=== PATIENT | male | born 1965 | race Caucasian/White ===

== ENCOUNTER 2019-05-09 10:03 | Outpatient (CLI) | payer MEDICARE, SELFPAY ==
--- NOTE | ~2019-05-09 | XR_ITS ---
EXAMINATION: XR lumbar spine 2-3V EXAM DATE: 05/09/2019 10:54 INDICATION: Lumbar radiculopathy. TECHNIQUE: Lumber spine frontal, lateral, lateral L5-S1 projections for interpretation. There is no prior study for comparison. FINDINGS: There is posterior fusion hardware L4-S1 with a cross linking violet. No hardware fracture. L 4 and L5 laminectomies. Probable moderate facet arthropathy at L5-S1, mild to moderate at the upper l umbar levels. There is interbody fusion L5-S1. Mild to moderate loss of the disc heights at L1-2, L2- 3 and L4-5. There is 3 mm retrolisthesis L3 on L4 with large bridging endplate osteophytes. Sacrum, s acroiliac joints, sacral arcuate lines are intact. Paraspinal soft tissue is unremarkable. IMPRESSION: 1. Intact lumbar fusion L4-S1. 2. Mild to moderate lumbar spondylosis as detailed above. Reviewed, dictated and finalized at location A.
--- NOTE | ~2019-05-09 | XR_ITS ---
EXAMINATION: XR cervical spine 4-5V EXAM DATE: 05/09/2019 10:54 INDICATION: Cervical radiculopathy. TECHNIQUE: Cervical spine frontal, lateral, lateral swimmers, and open-mouth odontoid projections. There is no prior study for comparison. FINDINGS: There is anterior and interbody fusion C5-7. Mild disc disease at the upper cervical level s. The vertebral bodies are aligned in the AP dimension. Mild to moderate cervical arthropathy. There is no evidence of acute cervical fracture. The odontoid process is intact. Pre-dens space is reena l. Prevertebral soft tissue is normal. There are no soft tissue abnormalities identified. The laci tebral bodies are aligned. Vertebral body and disc heights are well-maintained. IMPRESSION: 1. Intact C5-7 fusion. 2. Mild to moderate cervical arthropathy. Reviewed, dictated and finalized at location A.
== END 2019-05-09 10:04 ==
PROVIDERS: Visit Provider Pain Medicine Interventional Pain Medicine
DX: M54.16 Radiculopathy, lumbar region (principal); M54.12 Radiculopathy, cervical region; Z98.1 Arthrodesis status; M12.88 Other specific arthropathies, not elsewhere classified, other specified site; M47.816 Spondylosis without myelopathy or radiculopathy, lumbar region
CPT/HCPCS: 72050; 72100

== ENCOUNTER 2021-06-09 15:35 | Outpatient (CLI) | payer MEDICARE, SELFPAY ==
--- NOTE | ~2021-06-09 | XR_ITS ---
EXAMINATION: XR lumbar spine 2-3V EXAM DATE: 06/09/2021 16:39 INDICATION: Lumbar and cervical radiculopathy. TECHNIQUE: Lumber spine frontal, lateral, lateral L5-S1 projections for interpretation. Comparison is made to prior examination from 05/09/2019. FINDINGS: L4 and L5 laminectomies posterior fusion hardware L4-S1. Interbody device at L5-S1. The bermudez rdware is intact. There is possibility of lucency surrounding the pedicular screws, possible loosenin g, particularly at the uppermost L4 level. Probable posterior bone graft versus heterotopic ossificat ion. Mild to moderate upper lumbar arthropathy. There is 6 mm retrolisthesis L3 on L4 with moderate disc disease. Mild to moderate disc disease at L2 -3 and L4-5. Large anteriorly based L2-3 endplate osteophyte. There are no acute fractures identified . Mild aortic arterial sclerosis. Retroperitoneal surgical clips. IMPRESSION: 1. L4-S1 fusion with possibility of pedicular screw loosening particularly at the L4 level. 2. Grade 1 retrolisthesis L3 on L4. 3. Spondylosis. Reviewed, dictated and finalized at location B.
--- NOTE | ~2021-06-09 | XR_ITS ---
EXAMINATION: XR cervical spine 4-5V EXAM DATE: 06/09/2021 16:39 INDICATION: Cervical radiculopathy. TECHNIQUE: Cervical spine frontal, lateral, lateral swimmers, and open-mouth odontoid projections. C omparison is made to prior examination from 05/09/2019. FINDINGS: Anterior and interbody fusion C5-7. There is mild to moderate C4-5 disc disease. Mild to moderate cer vical arthropathy, with evidence of some neural foraminal stenosis at C4-5. Mild cervicothoracic scol iosis. The vertebral bodies are aligned in the AP dimension. The odontoid process is intact. The lat eral masses of C1 line up with C2. Prevertebral soft tissue and pre-dens space are within normal limi ts. IMPRESSION: 1. Intact C5-7 cervical fusion. 2. Mild to moderate spondylosis. Reviewed, dictated and finalized at location B.
== END 2021-06-09 15:36 ==
DX: M47.22 Other spondylosis with radiculopathy, cervical region (principal); M47.26 Other spondylosis with radiculopathy, lumbar region; Z98.1 Arthrodesis status; M41.9 Scoliosis, unspecified
CPT/HCPCS: 72050; 72100

== ENCOUNTER → 2021-11-04 14:22 | Outpatient (CLI) | payer MEDICARE, SELFPAY ==
--- NOTE | ~2021-11-04 | XR_ITS ---
EXAMINATION: XR hip LT min 2V DATE: 11/04/2021 14:42 INDICATION: Left hip pain. TECHNIQUE: 2 views of left hip were obtained. COMPARISON: Left hip radiographs 06/23/2017 FINDINGS: Bone alignment is normal. No fracture. There is mild left hip osteoarthritis. There are rosalina nges of posterior fusion procedure in lumbar spine. IMPRESSION: 1. Mild left hip osteoarthritis. Reviewed, dictated and finalized at location A.
== END ==
PROVIDERS: PCP Family Medicine; Visit Provider Pain Medicine Interventional Pain Medicine
DX: M25.552 Pain in left hip (principal); M16.12 Unilateral primary osteoarthritis, left hip
CPT/HCPCS: 73502

== ENCOUNTER 2021-12-17 14:30 | Outpatient (RCR) | payer MEDICARE, SELFPAY ==
[2021-10-21 13:16] VITALS: BMI 36.9
[2021-10-21 13:58] VITALS: BMI 36.9
== END 2022-01-12 09:05 | disposition home or self-care (01) ==
LOC: ANHDMC 14:30
PROVIDERS: PCP Family Medicine; Visit Provider Internal Medicine Endocrinology, Diabetes & Metabolism
DX: E11.9 Type 2 diabetes mellitus without complications (principal); Z71.3 Dietary counseling and surveillance; Z71.89 Other specified counseling
CPT/HCPCS: 97802; 99199; G0108; G0109

== ENCOUNTER 2022-01-15 12:58 | Outpatient (RCR) | payer MEDICARE, SELFPAY ==
[2022-01-15 13:46] VITALS: BMI 33.8
[2022-01-15 13:47] VITALS: BMI 33.8
== END 2022-03-20 17:50 | disposition home or self-care (01) ==
LOC: ANHDMC 12:58
PROVIDERS: PCP Family Medicine; Visit Provider Internal Medicine Endocrinology, Diabetes & Metabolism
DX: E11.9 Type 2 diabetes mellitus without complications (principal); Z71.3 Dietary counseling and surveillance
CPT/HCPCS: 97803

== ENCOUNTER 2022-04-22 13:36 | Outpatient (CLI) | payer MEDICARE, SELFPAY ==
[2022-04-22 14:34] LABS: Urine Cotinine NEGATIVE
== END 2022-04-22 13:37 | disposition home or self-care (01) ==
PROVIDERS: PCP Family Medicine
DX: M51.36 Other intervertebral disc degeneration, lumbar region (principal)
CPT/HCPCS: 80307

== ENCOUNTER 2022-05-11 10:45 | Outpatient (CLI) | payer MEDICARE, SELFPAY ==
[2022-05-11 11:35] LABS: Basophils Absolute Auto 0.1 K/mm3 (0.0-0.1); Basophils Percent Auto 0.6 % (0.2-1.2); Eosinophils Absolute Auto 0.3 K/mm3 (0-0.3); Eosinophils Percent Auto 3.2 % (0-4.4); Hematocrit 49.8 % (42.0-52.0); Hemoglobin 16.5 g/dL (14.0-18.0); Immature Granulocyte Absolute 0.02 K/mm3 (0.00-0.031); Immature Granulocyte Percent A 0.2 % (0-0.5); Lymphocytes Absolute Auto 1.55 K/mm3 (0.9-3.2); Lymphocytes Percent Auto 18.1 % (18.3-44.2); Mean Corpuscular HGB Conc 33.1 g/dl (32-36); Mean Corpuscular Hemoglobin 30.6 pg (26-34); Mean Corpuscular Volume 92.2 fl (80-100); Monocytes Absolute Auto 0.5 K/mm3 (0.1-0.6); Monocytes Percent Auto 5.7 % (2.6-8.5); Neutrophils Absolute Auto 6.2 K/mm3 (1.3-6.7); Neutrophils Percent Auto 72.2 % (45.5-73.1); Platelet Count Result 180 k/mm3 (150-375); Red Cell Distribution Width 13.3 % (11.5-14.5); White Blood Count 8.6 K/mm3 (4.5-10.0)
[2022-05-11 11:47] LABS: Alanine Aminotransferase 20 U/L (6-50); Albumin Level 4.7 g/dL (3.5-5.1); Alkaline Phosphatase 66 U/L (38-126); Anion Gap 8 mmol/L (8-16); Aspartate Amino Transferase 22 U/L (17-59); Bilirubin,Total 0.6 mg/dL (0.2-1.3); Blood Urea Nitrogen 20 mg/dL (9-20); Calcium 9.5 mg/dL (8.4-10.2); Carbon Dioxide 25 mmol/L (22-30); Chloride 105 mmol/L (98-107); Cholesterol 154 mg/dL (0-200); Estimated Glomerular Filt Rate > 60; Glucose 187 mg/dL (65-110); HDL Direct 44 mg/dL; Potassium 4.2 mmol/L (3.4-5.0); Sodium 138 mmol/L (137-145); Triglycerides 292 mg/dL (<150)
[2022-05-11 11:56] LABS: Hemoglobin A1C 6.2 % (<5.7)
[2022-05-11 11:58] LABS: LDL Cholesterol Direct 70 mg/dL
[2022-05-11 12:01] LABS: Creatinine Urine 64.8 mg/dL
[2022-05-11 12:06] LABS: MALB Creatinine Ratio 15.7 mg/g (0-30); Microalbumin Urine Random 10.2 mg/L (0-16.7)
[2022-05-11 12:11] LABS: Free T4 Free Thyroxine 0.98 ng/mL (0.78-2.19)
[2022-05-11 12:16] LABS: Prostate Specific Antigen 0.4 ng/mL (< OR = 4.0)
[2022-05-14 04:48] LABS: C-Peptide 11.04 ng/mL (0.80-3.85)
== END 2022-05-11 10:46 | disposition home or self-care (01) ==
PROVIDERS: PCP Family Medicine; Referring Provider Nurse Practitioner Family; Visit Provider Family Medicine
DX: E55.9 Vitamin D deficiency, unspecified (principal); I10 Essential (primary) hypertension; E11.9 Type 2 diabetes mellitus without complications; Z12.5 Encounter for screening for malignant neoplasm of prostate; E78.5 Hyperlipidemia, unspecified; F41.8 Other specified anxiety disorders
CPT/HCPCS: 36415; 80053; 80061; 82043; 82306; 82607; 83036; 84153; 84439; 84443; 84681; 85025; G0103

== ENCOUNTER 2022-10-15 12:18 | Outpatient (CLI) | payer OTHER, SELFPAY ==
--- NOTE | ~2022-10-15 | XR_ITS ---
EXAM: XR lumbar spine 2-3V DATE: 10/15/2022 13:00 HISTORY: PAIN IN BACK . COMPARISON: 06/09/2021, 05/09/2019; CT abdomen and pelvis 07/23/2016 MRI lumbar spine 08/07/2017. FINDINGS: Note that are appears to be hypoplastic ribs at T12 and bilateral sacralization of L5. The following spinal level numbering differs from prior studies. Uncomplicated appearing fusion hardware spanning L2-L5. Interbody devices at L2-3 and L4-5, in good position. 5 nonrib-bearing lumbar-type ve rtebral bodies. Pedicles intact. 3 mm retrolisthesis at L1-2. 2 mm retrolistheses at L2-3 and L3-4. S table mild height loss at T11 and T12. Multilevel mild-moderate disc space narrowing and marginal ost eophytosis. No fracture or dislocation. 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 Recommend co nfirmation of spinal levels if additional procedures or surgery are planned. Uncomplicated lumbar posterior hardware fusion. Multilevel grade 1 listheses. Lumbar degenerative disc disease. Reviewed, dictated and finalized at location K. 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 Recommend confirmation of spinal levels if additional procedures or s urgery are planned. Uncomplicated lumbar posterior hardware fusion. Multilevel grade 1 listheses. Lumbar degenerative disc disease.
--- NOTE | ~2022-10-15 | XR_ITS ---
EXAMINATION:XR_CERV2-3V_CR DATE: 10/15/2022 13:00 INDICATION: Neck pain TECHNIQUE: AP, lateral, lateral swimmers and odontoid views of the cervical spine are provided. COMPARISON: 06/09/2021 FINDINGS: Alignment is normal. The odontoid process is intact. No fracture is identified. There are c hanges of anterior fusion and interbody placement from C5 through C7. Vertebral body heights and disk spaces are normal. Prevertebral soft tissues are normal. There is multilevel moderate facet and unco vertebral joint osteoarthritis. IMPRESSION: 1. Mild to moderate cervical spondylosis without acute findings or significant interval change. Reviewed, dictated and finalized at location L.
--- NOTE | ~2022-10-15 | XR_ITS ---
EXAM: XR shoulder RT min 2V, XR shoulder LT min 2V DATE: 10/15/2022 13:00 HISTORY: PAIN IN SHOULDER BI . COMPARISON: None available. FINDINGS: Normal mineralization. No fracture or dislocation. No lytic or blastic lesion. ACDF hardwa re. Amorphous cuff calcifications. Mild degenerative change in the bilateral AC joints and glenohumer al joints. No erosion or periosteal change. Soft tissues within normal limits. IMPRESSION: Mild polyarticular osteoarthritis in the right and left shoulders. Bilateral rotator cuff tendinitis. Reviewed, dictated and finalized at location K. IMPRESSION: Mild polyarticular osteoarthritis in the right and left shoulders. Bilateral rotator cuff tendinitis.
== END 2022-10-15 12:19 ==
PROVIDERS: PCP Family Medicine; Visit Provider Pain Medicine Interventional Pain Medicine
DX: M51.36 Other intervertebral disc degeneration, lumbar region (principal); M47.22 Other spondylosis with radiculopathy, cervical region; M25.511 Pain in right shoulder; M25.512 Pain in left shoulder; M15.9 Polyosteoarthritis, unspecified; M75.102 Unspecified rotator cuff tear or rupture of left shoulder, not specified as traumatic
CPT/HCPCS: 72040; 72100; 73030

== ENCOUNTER 2022-11-10 15:05 | Outpatient (CLI) | payer MEDICARE, SELFPAY ==
[2022-11-10 20:05] LABS: Alanine Aminotransferase 16 U/L (6-50); Albumin Level 4.5 g/dL (3.5-5.1); Alkaline Phosphatase 76 U/L (38-126); Anion Gap 3 mmol/L (8-16); Aspartate Amino Transferase 31 U/L (17-59); Bilirubin,Total 0.5 mg/dL (0.2-1.3); Blood Urea Nitrogen 15 mg/dL (9-20); Calcium 9.7 mg/dL (8.4-10.2); Carbon Dioxide 32 mmol/L (22-30); Chloride 102 mmol/L (98-107); Estimated Glomerular Filt Rate > 60; Glucose 141 mg/dL (65-110); Potassium 4.5 mmol/L (3.4-5.0); Sodium 137 mmol/L (137-145)
== END 2022-11-10 15:06 | disposition home or self-care (01) ==
LOC: ANHGOSHLAB 15:07
PROVIDERS: PCP Family Medicine; Visit Provider Family Medicine
DX: E11.9 Type 2 diabetes mellitus without complications (principal); I10 Essential (primary) hypertension; Z79.899 Other long term (current) drug therapy
CPT/HCPCS: 36415; 80053

== ENCOUNTER 2022-12-21 09:57 | Outpatient (CLI) | payer MEDICARE, SELFPAY ==
--- NOTE | ~2022-12-21 | CT_ITS ---
EXAMINATION: CT lumbar spine wo con DATE: 12/21/2022 10:12 INDICATION: Chronic back pain TECHNIQUE: Computed tomography (CT) of the lumbar spine was performed without intravenous contrast. A utomated exposure control and iterative reconstruction technique were employed. The dose-length produ ct was 974.09 mGy-cm. COMPARISON: Lumbar spine radiographs dated 10/15/2022 FINDINGS: Transitional thoracolumbar segment with hypoplastic riblets which for purposes of this report will be designated L1. Prior imaging is insufficient to definitively establish the number of thoracic segmen ts. 1-2 mm retrolisthesis L3 on L4 and L4-L5. Chronic superior endplate compression fracture at L5 wi th 40% central vertebral body height loss. Chronic L1 compression fracture with 20% anterior vertebra l body height loss. Postoperative change of prior L4 laminectomy. There have also been more recent-ap pearing L5 and S1 partial laminectomies and left L4-L5 and L5-S1 hemilaminotomies which lack a cortic ated margin and which appear to have been revised/debrided in the interval between the radiographs on 06/09/2021 and 10/15/2022. There is a residual fluid collection in the posterior paraspinal soft tissu es at the operative bed which measures 7 cm craniocaudally and 5 x 5 cm in maximal transaxial dimensi ons. Chronic anterior spinal fusion with interbody bone graft cage at L5-S1 and more recent anterior spinal fusion with interbody fusion device at L3-L4. There is a revised instrumented posterior spinal fusion which extends from L3 to S1 with bilateral vertical rods and pedicle screws the exception of on the left at L5 where there is no current pedicle screw. Old screw tract from previous removed fixa tion seen at the left L5 pedicle as well as at the bilateral pedicles at S1. There is a chronic appea ring ununited fracture across the left L5 pars interarticularis. Moderate disc height loss at T12-L1, mild disc height loss at L1-L2 and L2-L3 and mild disc height loss at the periphery of the L4-L5 dis c space with central ballooning resulting from the L5 compression fracture. There are partially visua lized cyst at the left kidney. The following disc levels are specifically discussed: T12-L1: The disc does not extend beyond the endplate margin. There is mild bilateral facet joint oste oarthritis. There is no neural foraminal stenosis. There is no central canal stenosis. L1-L2: Small right paracentral disc extrusion with small osteophyte along its cephalad margin arising from L1. There is mild bilateral facet joint osteoarthritis. There is mild right neural foraminal st enosis. There is mild central canal stenosis. L2-L3: Disc is mildly bulging. There is mild bilateral facet joint osteoarthritis. There is no neural foraminal stenosis. There is mild central canal stenosis. L3-L4: Assessment is somewhat limited by metallic streak artifact from the posterior spinal fusion. F usion procedure at the disc space and bilateral facet joints. There is mild narrowing of the inferior aspect of the right neural foramina stenosis which appears to be compensated at the cephalad aspect of the neural foramina by the minimal retropulsion with corresponding posterior displacement of the p osterior elements of L3 at the posterior margin of the neural foramen. There is no osseous narrowing of the left neural foramen or of the central canal. L4-L5: The soft tissue and margins of the disc are unable to be assessed due to the metallic streak a rtifact from the posterior spinal fusion at the bilateral facet joints. Likely left hemilaminotomy wi th a couple millimeter medial displacement of an appears to arise from the cephalad margin of the lef t lamina of L5 along the margin of the hemilaminotomy and which results in mild narrowing of the osse ous central canal. There is minimal right neural foraminal stenosis resulting from small amount of adolfo ne graft material at the posterior aspect o
== END 2022-12-21 09:58 ==
LOC: MICIMG 09:58
DX: Z98.1 Arthrodesis status (principal); M43.06 Spondylolysis, lumbar region; M43.04 Spondylolysis, thoracic region; M79.89 Other specified soft tissue disorders
CPT/HCPCS: 72131

== ENCOUNTER 2023-05-12 08:31 | Outpatient (CLI) | payer MEDICARE, SELFPAY ==
[2023-05-12 11:32] LABS: Basophils Absolute Auto 0.1 K/mm3 (0.0-0.1); Basophils Percent Auto 0.5 % (0.2-1.2); Eosinophils Absolute Auto 0.4 K/mm3 (0-0.3); Eosinophils Percent Auto 4.1 % (0-4.4); Hematocrit 54.1 % (42.0-52.0); Hemoglobin 17.1 g/dL (14.0-18.0); Immature Granulocyte Absolute 0.03 K/mm3 (0.00-0.031); Immature Granulocyte Percent A 0.3 % (0-0.5); Lymphocytes Absolute Auto 2.15 K/mm3 (0.9-3.2); Lymphocytes Percent Auto 22.8 % (18.3-44.2); Mean Corpuscular HGB Conc 31.6 g/dl (32-36); Mean Corpuscular Hemoglobin 29.3 pg (26-34); Mean Corpuscular Volume 92.6 fl (80-100); Mean Platelet Volume 11.6 fl (7.4-10.4); Monocytes Absolute Auto 0.9 K/mm3 (0.1-0.6); Monocytes Percent Auto 9.6 % (2.6-8.5); Neutrophils Absolute Auto 5.9 K/mm3 (1.3-6.7); Neutrophils Percent Auto 62.7 % (45.5-73.1); Platelet Count Result 190 k/mm3 (150-375); Red Blood Count 5.84 M/mm3 (4.6-6.20); Red Cell Distribution Width 14.2 % (11.5-14.5); White Blood Count 9.4 K/mm3 (4.5-10.0)
[2023-05-12 11:56] LABS: Alanine Aminotransferase 20 U/L (6-50); Albumin Level 4.6 g/dL (3.5-5.1); Alkaline Phosphatase 74 U/L (38-126); Anion Gap 7 mmol/L (8-16); Aspartate Amino Transferase 37 U/L (17-59); Bilirubin,Total 0.9 mg/dL (0.2-1.3); Blood Urea Nitrogen 22 mg/dL (9-20); Calcium 10.1 mg/dL (8.4-10.2); Carbon Dioxide 28 mmol/L (22-30); Chloride 103 mmol/L (98-107); Cholesterol 142 mg/dL (0-200); Estimated Glomerular Filt Rate > 60; Glucose 155 mg/dL (65-110); HDL Direct 47 mg/dL; Potassium 4.6 mmol/L (3.4-5.0); Sodium 138 mmol/L (137-145); Triglycerides 166 mg/dL (<150)
[2023-05-12 12:07] LABS: LDL Cholesterol Direct 74 mg/dL
[2023-05-12 12:22] LABS: Vitamin D 25 Hydroxy 45.1 ng/mL
[2023-05-12 12:25] LABS: Prostate Specific Antigen 0.6 ng/mL (< OR = 4.0)
[2023-05-12 12:34] LABS: Creatinine Urine 88.6 mg/dL
[2023-05-12 12:37] LABS: MALB Creatinine Ratio 54.3 mg/g (0-30); Microalbumin Urine Random 48.1 mg/L (0-16.7)
== END 2023-05-12 08:32 | disposition home or self-care (01) ==
PROVIDERS: PCP Family Medicine; Visit Provider Family Medicine
DX: Z12.5 Encounter for screening for malignant neoplasm of prostate (principal); R20.0 Anesthesia of skin; R20.2 Paresthesia of skin; E78.5 Hyperlipidemia, unspecified; F41.8 Other specified anxiety disorders; I10 Essential (primary) hypertension; E55.9 Vitamin D deficiency, unspecified; J45.20 Mild intermittent asthma, uncomplicated; E53.8 Deficiency of other specified B group vitamins; E11.9 Type 2 diabetes mellitus without complications
CPT/HCPCS: 36415; 80053; 80061; 82043; 82306; 82607; 84153; 84443; 85025; G0103

== ENCOUNTER 2023-10-05 01:19 | Day surgery (SDC) | payer MEDICARE, SELFPAY ==
[2023-09-15 13:19] VITALS: BMI 36.3
[2023-10-05 06:22] VITALS: BP 154/81; PULSE 81; RESP 18; TEMP 36.5; O2SAT 97; BMI 37.0
[2023-10-05 06:24] LABS: Glucose Point of Care 191 mg/dl (65-105)
[2023-10-05] MEDS: LACTATED RINGERS 1,000 ML 150 ML IV CONT (06:31)
--- NOTE | 2023-10-05 07:09 | WPDANESEPPF ---
Anes - Initial Pre Proc Eval Procedure: Operation Date: 10/05/23 07:30 Proposed Procedures p Colonoscopy - Carlos Cloud MD Date/Time: 10/05/23 07:09 Surgeon: Carlos Cloud MD Pre Op Diagnosis: Personal history colon polyps Patient Data Age: 58 Gender: M Height: 1.63 m Weight: 97.8 kg Last Vital Signs Temp 36.5 C 10/05/23 06:22 Pulse 81 10/05/23 06:22 Resp 18 10/05/23 06:22 BP 154/81 H 10/05/23 06:22 Pulse Ox 97 10/05/23 06:22 O2 Del Method Room Air 10/05/23 06:22 Allergies Allergy/AdvReac Type Severity Reaction Status Date / Time duloxetine Allergy Unknown Anxiety Verified 10/05/23 06:33 Home Medications Medication Instructions Recorded Confirmed Type oxycodone-acetaminophen 7.5 mg-325 1 tablet PO TID PRN Pain 10/03/19 10/05/23 History mg tablet (Percocet) tizanidine 4 mg tablet 4 mg PO QHS PRN Muscle Spasm 01/30/21 10/05/23 History OneTouch Verio test strips (blood #300 ea 10/02/21 10/05/23 Rx sugar diagnostic) blood-glucose meter 10/02/21 10/05/23 History lancets 33 gauge (OneTouch Delica #300 ea 11/13/21 10/05/23 Rx Plus Lancet) pen needle, diabetic 32 gauge x #600 ea 11/13/21 10/05/23 Rx 5/32 (CareFine Pen Needle) semaglutide 2 mg/dose (8 mg/3 mL) 2 mg (0.75 mL) subcut WEEKLY 90 02/12/22 10/05/23 Rx subcutaneous pen injector (Ozempic) days #9 mL sennosides 8.6 mg-docusate sodium 1 ea PO DAILY 02/12/22 10/05/23 History 50 mg tablet (Stimulant Laxative Plus) blood sugar diagnostic (Blood #300 ea 08/31/22 10/05/23 Rx Glucose Test strips) blood sugar diagnostic (Accu-Chek #100 ea 09/07/22 10/05/23 Rx Guide test strips) blood-glucose meter (Accu-Chek #1 ea 09/07/22 10/05/23 Rx Guide Glucose Meter) urine glucose-ketones test #50 ea 11/25/22 10/05/23 Rx amitriptyline 50 mg tablet 50 mg PO QHS PRN Sleep 05/10/23 10/05/23 History meloxicam 15 mg tablet 15 mg PO DAILY 05/10/23 10/05/23 History lisinopril 10 mg tablet 10 mg PO DAILY #90 tabs 06/15/23 10/05/23 Rx albuterol sulfate 90 mcg/actuation 2 inh inhalation Q4-6H PRN 07/05/23 10/05/23 Rx aerosol inhaler shortness of breath or wheezing #25.5 grams fluticasone 500 mcg-salmeterol 50 1 inh inhalation Q12H #180 ea 07/05/23 10/05/23 Rx mcg/dose blistr powdr for inhalation (Wixela Inhub) atorvastatin 10 mg tablet 10 mg PO QHS #90 tabs 07/06/23 10/05/23 Rx dapagliflozin propanediol 10 mg 10 mg PO QAM 90 days #90 tabs 08/17/23 10/05/23 Rx tablet (Farxiga) pen needle, diabetic 32 gauge x #100 ea 08/17/23 10/05/23 Rx 5/32 (BD Ultra-Fine Gunjan Pen Needle) glucagon 3 mg/actuation nasal spray 3 mg intranasal ONCE PRN low blood 09/15/23 10/05/23 History sugar insulin degludec 200 unit/mL (3 20 unit subcut PRN PRN no ozempic 09/15/23 10/05/23 History mL) subcutaneous pen (Tresiba avaiable FlexTouch U-200 insulin) Laboratory Tests 10/05/23 06:18 POC Capillary Glucose 191 H mg/dl (65-105) Patient hx anesthesia problems: none Family hx anesthesia problems: none Results Review: All pre-operative results and documents have been reviewed as part of the pre-operative evaluation. [facility] Past Medical History Medical History Abdominal wall seroma Anxiety and depression Anxiety with depression Arthritis Asthma Body mass index (BMI) 40.0-44.9, adult (08/31/16) Chronic neck and back pain Epididymitis, left Essential (primary) hypertension (~2006) History of bladder cancer (~2007) History of colon polyps (~2016) History of trigger finger right middle finger - s/p release 2005 Hyperlipidemia LDL goal <100 Insomnia Intervertebral disc disorders with myelopathy, lumbar region Left hip pain [facility] (current) use of insulin Lumbar disc disease with radiculopathy Mild episode of recurrent major depressive disorder Muscle spasm Nontraumatic hematoma of soft tissue (
--- NOTE | 2023-10-05 07:26 | PM.HPGS ---
History of Present Illness History of Present Illness Consent: Risks, benefits, and alternatives have been discussed and questions answered. Patient agrees to proceed with procedure. Chief complaint: Personal history colon polyps Narrative: Rui Mckinnon is a 58 year old male here for colonoscopy, h/o colon polyp Review of Systems Review of Systems: All systems reviewed & are unremarkable except as noted in HPI and below PMFSH Past Medical History Medical History (Updated 10/05/23 @ 07:27 by Carlos Cloud MD) Abdominal wall seroma Anxiety and depression Anxiety with depression Arthritis Asthma Body mass index (BMI) 40.0-44.9, adult (08/31/16) Chronic neck and back pain Colon polyp Epididymitis, left Essential (primary) hypertension (~2006) History of bladder cancer (~2007) History of colon polyps (~2016) History of trigger finger right middle finger - s/p release 2005 Hyperlipidemia LDL goal <100 Insomnia Intervertebral disc disorders with myelopathy, lumbar region Left hip pain [facility] (current) use of insulin Lumbar disc disease with radiculopathy Mild episode of recurrent major depressive disorder Muscle spasm Nontraumatic hematoma of soft tissue (07/13/17) Numbness and tingling of left leg SASKIA (obstructive sleep apnea) Sleep trouble Spondylolisthesis Tobacco abuse Type 2 diabetes mellitus without complications Vitamin D deficiency Surgical History Surgical History H/O cervical spine surgery 2014 x6 History of arthroscopic knee surgery Right for meniscal repair 2010 History of bladder surgery resection of bladder cander - 2007 History of lumbar spinal fusion (~06/15/22) History of lumbosacral spine surgery 2016 and 2018 Family History Family History Mother Family history of osteoporosis Family history of blood dyscrasia Hypertension Family history of malignant neoplasm Family history of diabetes mellitus in first degree relative Sibling Family history of drug dependence Depression Family history of alcoholism Family history of malignant neoplasm Family history of lung cancer Father Asthma Family history of alcoholism Family history of malignant neoplasm Family history of chronic obstructive pulmonary disease Family history of lung cancer Other Diabetes mellitus Social History Social History Social History: Pt states that he has a license for marijuana and uses 1-2 times a day Smoking packs per day: 1 Smoking cigarettes per day: 20.0 Years smoked: 37 Smoking pack-years: 37.00 Smoking status: Current every day smoker Tobacco type: cigarettes Second hand tobacco smoke exposure: Yes Smoking end date: 03/14/22 Alcohol intake: never Alcohol use details: 1 per month Substance use: current Substance use type: marijuana Other substance usage details: 1-2 x weekly Do You Feel Safe in your Home?: Yes Lack of Transportation: No Lack of Food: Never True Current Housing: I Have Housing Concerned About Future Housing: No Difficulty Paying Gas/Electric Bills: No Difficulty Paying for Meds: YES Currently Unemployed: No Education: High School Diploma/GED Difficulty w/ Childcare or Family Care: No Living arrangements: alone Occupation/Education: retired Gender identity (if verbalized by the patient): Male Spiritual care concerns: No Meds Home Medications and Allergies Home Medications Medication Instructions Recorded Confirmed Type oxycodone-acetaminophen 7.5 mg-325 1 tablet PO TID PRN Pain 10/03/19 10/05/23 History mg tablet (Percocet) tizanidine 4 mg tablet 4 mg PO QHS PRN Muscle Spasm 01/30/21 10/05/23 History OneTouch Verio test strips (blood #300 ea 10/02/21 10/05/23 Rx sugar diagnostic) blood-glucose meter 10/02/21 0
[2023-10-05 07:48] VITALS: BP 124/83; PULSE 78; RESP 22; O2SAT 96
[2023-10-05 07:58] VITALS: BP 129/83; PULSE 71; RESP 19; O2SAT 98
[2023-10-05 08:08] VITALS: BP 124/80; PULSE 77; RESP 24; O2SAT 97
== END 2023-10-05 08:19 | disposition home or self-care (01) ==
PROVIDERS: PCP Family Medicine; Referring Provider Family Medicine; Visit Provider Internal Medicine Gastroenterology
PROC: 0DJD8ZZ Inspection of Lower Intestinal Tract, Via Natural or Artificial Opening Endoscopic (ICD-10-PCS; CPT 45378; principal; 2023-10-05 07:30)
DX: Z12.11 Encounter for screening for malignant neoplasm of colon (principal); K63.5 Polyp of colon; K57.30 Diverticulosis of large intestine without perforation or abscess without bleeding; K64.8 Other hemorrhoids; I10 Essential (primary) hypertension; J45.909 Unspecified asthma, uncomplicated; E78.5 Hyperlipidemia, unspecified; F33.0 Major depressive disorder, recurrent, mild; E11.9 Type 2 diabetes mellitus without complications; E55.9 Vitamin D deficiency, unspecified; F41.9 Anxiety disorder, unspecified; G47.33 Obstructive sleep apnea (adult) (pediatric); Z85.51 Personal history of malignant neoplasm of bladder; Z79.85 Long-term (current) use of injectable non-insulin antidiabetic drugs; Z79.51 Long term (current) use of inhaled steroids; Z79.84 Long term (current) use of oral hypoglycemic drugs; Z79.4 Long term (current) use of insulin; Z79.891 Long term (current) use of opiate analgesic; Z98.1 Arthrodesis status; Z87.891 Personal history of nicotine dependence; E66.9 Obesity, unspecified; Z68.37 Body mass index [BMI] 37.0-37.9, adult
CPT/HCPCS: 45385; 82948; 88305; J2704; J7120

== ENCOUNTER 2024-05-09 13:41 | Outpatient (CLI) | payer MEDICARE, SELFPAY ==
--- OUTSIDE RECORDS SUMMARY | 2024-05-09 15:21 | XMS_ITS | Clinical Summary ---
Author Organization [facility] Address [address] [place] [address] Care Team Providers Care Damper Worker Name Role Phone Hitesh Chauhan MD Primary Care Provider Velasquez Cordoba MD Unavailable [phone] Tika Basurto NP Unavailable [phone] Allergies No known active allergies Medications albuterol HFA (PROVENTIL HFA,VENTOLIN HFA,PROAIR HFA) 90 mcg/actuation inhaler INHALE 2 PUFFS EVERY 4 TO 6 HOURS NEEDED FOR WHEEZING OR SHORTNESS OF BREATH 2 Active blood glucose diagnostic strip Check blood sugar 2 times daily. 6 Active lisinopriL (PRINIVIL,ZESTR IL) 10 mg tablet Take 1.5 tablets (15 mg total) by mouth daily Active Ozempic 1 mg/dose (4 mg/3 mL) pen injector injection INJECT 1 MG UNDER SKIN EVERY WEEK 2 Active PreviDent 5000 Booster Plus 1.1 % paste USE TO BRUSH TEETH TWICE DAILY 3 Active Wixela Inhub 500-50 mcg/dose diskus inhaler INHALE 1 PUFF BY MOUTH EVERY 12 HOURS 3 Active atorvastatin (LIPITOR) 10 mg tablet Take 1 tablet (10 mg total) by mouth daily Active cholecalciferol (VITAMIN D-3) 50,000 unit capsule Take 1 capsule (50,000 Units total) by mouth once a week 16 capsule 3 Active senna-docusate (PERICOLACE) 8.6-50 mgIndications:c onstipation Take 1 tablet by mouth daily as needed for constipation 30 tablet 3 Active tiZANidine (ZANAFLEX) 4 mg tablet Take 1 tablet (4 mg total) by mouth every 6 (six) hours as needed for muscle spasms 90 tablet 1 3 Active oxyCODONE-aceta minophen (PERCOCET) 7.5-325 mg per tablet Take by mouth 4 (four) times a day as needed 3 Active Active Problems Problem Noted Date Diagnosed Date Severe malnutrition 06/19/2022 S/P lumbar spinal fusion 06/15/2022 Spondylolisthesis of lumbar region 04/28/2022 Overview (04/28/2022): Added automatically from request for surgery [id number] Chronic low back pain with left-sided sciatica 0 09/04/2021 Intervertebral disc disorder with radiculopathy of lumbar region 08/18/2021 Asthma 08/15/2021 Hypogonadism male 08/15/2021 Lichen planus 08/15/2021 Lumbar stenosis 10/05/2017 Hypertriglyceridemia 01/07/2016 DDD (degenerative disc disease), cervical 2015 Overview (08/15/2021): Overview: Follows w/ Type 2 diabetes mellitus wit h microalbuminuria, with long-term current use of insulin 10/03/2015 Tubular adenoma of colon 08/31/2015 Trigger middle finger of right hand 08/30/2015 Tobacco use 11/15/2014 Fatty liver 06/06/2012 Anxiety and depression 2012 Overview (08/15/2021): Overview: - patient was Rx Wellbutrin 07/11 but ne never started SASKIA on CPAP 05/04/2012 Vitamin D deficiency 05/04/2012 Immunizations Immunization Administration Dates Next Due Influenza, Quadrivalent, Spl it, Preservative Free, Intramuscular 01/19/2021 Influenza, Trivalent, IM (MDV) 11/13/2013 Influenza, Trivalent, Preservative Free, Intramu scular 01/07/2016,11/15/2014 Pneumococcal Polysaccharide PPV23 07/06/2012 Surgical History Surgery Date Site/Laterality Comments LUMBAR SPINE SURGERY 03/01/2011 - 02/29/2012 SPINAL FUSION 03/01/2014 - 02/28/2015 c4,c5,c6 LUMBAR FUSION 03/01/2017 - 02/28/2018 Lower BLADDER SURGERY KNEE ARTHROSCOPY Right LUMBAR FUSION 06/15/[address] Cordoba- L3-4 transforaminal lumbar interbody fusion; L4-5 exploration/assessment of fusion and possible transforaminal interbody fusion; removal of implants, L3-S1 revision instrumentation; L3-4 decompressive laminectomy/discectomy Medical History Medical History Date Comments Anxiety Asthma Cancer (HCC) bladder COPD (chronic obstructive pu lmonary disease) (HCC) Depression Type 2 diabetes mellitus (HCC) Hypertension Disc disorder of lumbar region Sleep apnea Hyperlipidemia PONV (postoperative nausea and vomiting) Anxiety and depression 2012 Overview: - patient was Rx Wellbutrin 07/11 but ne never started DDD (degenerative disc disease), cervical 10/03/19 16 Overview: Follows w/ Fatty liver 06/06/2012 Hypertriglyceridemia 01/07/2016 Hypogonadism male 08/15/2021 Lichen planus 08/15/2021 Lumbar stenosis 10/05/2017 SASKIA on CPAP 05/04/2012 Tobacco use 11/15/2014 Trigger middle finger of right hand 08/30/2015 Vitamin D deficiency 05/04/2012 Type 2 diabetes mellitus wit h microalbuminuria, with long-term current use of insulin (HCC) 10/03/2015 Tubular adenoma of colon 08/31/2015 Intervertebral disc disorder with radiculopathy of lumbar region 08/18/2021 Chronic low back pain with l eft-sided sciatica 09/04/2021 Family History Medical History Relation Name Comments Cancer Father Diabetes Maternal Grandmother Heart disease Maternal Grandmother Cancer Mother Diabetes Mother Heart disease Mother Hypertension Mother Cancer Sister Relation Name Status Comments Brother Father Maternal Grandmother Mother Sister Social History Tobacco Use Types Packs/Day Years Used Date Smoking Tobacco: Former Cigarettes Q uit: 03/17/2022 Smokeless Tobacco: Never Tobacco Cessation:Counseling Given: No AUDIT-C Answer Date Recorded Q1: How often do you have a drink containing alcohol? Never 06/15/2022 Q2: How many drinks containi ng alcohol do you have on a typical day when you are drinking? Patient does not drink Q3: How often do you have si x or more drinks on one occasion? Never 06/15/2022 Personal Safety Answer Date Recorded Have you ever been in or are you currently in a harmful physical or emotional relationship or is someone making you feel afraid or unsafe? 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 Gender Identity Not on file Sexual Orientation Not on file Obstetrics History Last Filed Vital Signs Vital Sign Reading Time Taken Comments Blood Pressure 126/79 06/24/2023 10:49 AM CDT Pulse 93 06/24/2023 10:49 AM CDT Temperature 37.4 C (99.3 F) 06/20/2022 1:46 PM CDT Respiratory Rate 18 06/20/2022 1:46 PM CDT Oxygen Saturation 96% 06/24/2023 10:49 AM CDT Inhaled Oxygen Concentration - - Weight 95.3 kg (210 lb) 06/24/2023 10:49 AM CDT Height 165.1 cm (5' 5 ) 06/24/2023 10:49 AM CDT Body Mass Index 34.95 06/24/2023 10:49 AM CDT Plan of Treatment Health Maintenance Due Date Last Done Comments Albumin Creatinine Ratio, Urine 1965 Colon Cancer Screening-Colonoscopy 1965 Depression Screening 1965 Hepatitis C Screening 1965 Prostate Cancer Screening-PSA 1965 Dilated Eye Exam 1965 Foot Exam 1965 DTaP/Tdap/Td Vaccine (1 - Tdap) 1976 Hepatitis B Screening 05/17/1983 Regular Well Visit/Exam 18-64 05/17/1983 Pneumococcal vaccine <65 (2 of 2 - PCV) 07/06/2013 07/06/2012 Zoster Vaccine (1 of 2) 05/17/2015 Lipid Panel 01/06/2017 01/07/2016 Hemoglobin A1C 12/05/2022 06/05/2022, 10/05/2017 eGFR 06/21/2023 06/20/2022, 05/31, 06/19/2022, Additional history exists Covid-19 Vaccine ( - 2023-2 5 season) 2023 01/19/2021, 05/22/2020, 04/30/2020 Influenza Vaccine (#1) 2023 , 01/07/2016, 11/15/2014, Additional history exists Medical Devices Implanted Type Area Converter Operator Device Identifier Shelf Expiration Date Model / Serial / Lot [employer] Canpac Nonpurge Frozen Graft 50cc Bone [id number] - [id number] - [id number] Implanted:Qty: 1 on 06/15/2022 by Velasquez Cordoba MD at [facility] N/A: Spine Lumbar [employer] 01/29/2027 [id number] / [id number] / Description:ID: [id number] [employer] Creo Thread Spinal Cap Locking Nonsterile 1119.0010 - [id number] Implanted:Qty: 7 on 06/15/2022 by Velasquez Cordoba MD at [facility] N/A: Spine Lumbar [employer] 1119.0010 / / [employer] Graft Bone Filler Resorbable Mesh [id number] - [id number] - [id number] Implanted:Qty: 1 on 06/15/2022 by Velasquez Cordoba MD at [facility] N/A: Spine Lumbar [employer] [id number] 09/26/2023 [id number] / [id number] / [id number] [employer] Graft Bone Filler Resorbable Mesh [id number] - [id number] - [id number] Implanted:Qty: 1 on 06/15/2022 by Velasquez Cordoba MD at [facility] N/A: Spine Lumbar [employer] [id number] 03/28/2023 [id number] / [id number] / [id number] [employer] Graft Bone Filler Resorbable Mesh [id number] - [id number] - [id number] Implanted:Qty: 1 on 06/15/2022 by Velasquez Cordoba MD at [facility] N/A: Spine Lumbar [employer] [id number] 10/27/2023 [id number] / [id number] / [id number] [employer] Altera [id number] 15d Spacer Spinal 1124.1132 - [id number] Implanted:Qty: 1 on 06/15/2022 by Velasquez Cordoba MD at [facility] N/A: Spine Lumbar [employer] 1124.1132 / / [employer] Creo Amp 7.5mm 45mm Cannulated Modular Spine Screw Bone 1067.4745 - [id number] Implanted:Qty: 5 on 06/15/2022 by Velasquez Cordoba MD at [facility] N/A: Spine Lumbar [employer] 1067.4745 / / [employer] Creo 7.5mm 50mm Cannulated Modular Spine Screw Bone 1067.4750 - [id number] Implanted:Qty: 2 on 06/15/2022 by Velasquez Cordoba MD at [facility] N/A: Spine Lumbar [employer] 1067.4750 / / [employer] 7146.011 Creo Amp Polyaxial Thread Tulip Spine Transfacet Screw Bone Cocr - [id number] Implanted:Qty: 7 on 06/15/2022 by Velasquez Cordoba MD at [facility] N/A: Spine Lumbar [employer] 7146.0110 / / [employer] 7134.71 Creo Mis 5.5mm 100mm Curve Elier Spinal Cocr - [id number] Implanted:Qty: 2 on 06/15/2022 by Velasquez Cordoba MD at [facility] N/A: Spine Lumbar [employer] 7134.7100 / / Procedures Procedure Name Priority Date/Time Associated Diagnosis Comments EGFR Routine 06/20/2022 4:40 AM CDT HEMOGLOBIN A1C Routine 06/05/2022 10:39 AM CDT Spondylolisthesis of lumbar region Pre-operative exam from Last 3 Months or Most Recently Relevant to Health Maintenance Results * eGFR (06/20/2022 4:40 AM CDT) [facility] eGFR 113 mL/min/1. 73 m2 [facility] Comment: Interpretive Data Reference Interval Normal >/= 90 mL/min/1.73m2 Mildly decreased* 60 - 89 mL/min/1.73m2 Mildly to moderately decreased 45 - 59 mL/min/1.73m2 Moderately to severely decreased 30 - 44 mL/min/1.73m2 Severely decreased 15 - 29 mL/min/1.73m2 Kidney Failure < 15 mL/min/1.73m2 *Relative to young adult level Estimated glomerular filtration rate is determined by the 2020 CKD-EPI equation recommended by the National Kidney Foundation (A Unifying Approach to GFR Estimation: Recommendations of the NKF-ASK Task Force on Reassessing the Inclusion of Race in Diagnosing Kidney Disease, JASN 2020). The CKD-EPI equation should not be used for patients with unstable renal function and has not been validated in children and those over 70. Current interpretive data was last reviewed 2020. Blood 06/20/2022 4:40 AM CDT 06/20/2022 4:55 AM CDT us May Lola Art DO LAB BLOOD ORDERABLES Fi nal Result Performing Organization Address City[facility]/ZIP Co de Phone Number [address] Department of Laboratories [place] [phone] * (ABNORMAL) Hemoglobin A1c (06/05/2022 10:39 AM CDT) Hgb A1C 6.7(H) 4.0 - 5.6 % [facility] Estimated Average Glucose 146 mg/dL [facility] Comment: The ADA recommends reporting an estimated Average Glucose (eAG) with all Hemoglobin A1c results using the equation derived from a study of 507 normal and diabetic adults. Minority populations were underrepresented and children were not included. (Diabetes Care 31:7863-3306, 2008). The eAG is not equivalent to a fasting glucose. Blood 06/05/2022 10:3 9 AM CDT 06/05/2022 10:49 AM CDT us Velasquez Cordoba MD LAB BLOOD ORDERABLES Final Result [facility] [address] [facility] Department [place] [address] from Last 3 Months or Most Recently Relevant to Health Maintenance [place] [place] [address] [employer] [facility] [employer] Advance Directives For more information, please contact: [phone] * Full Code (Latest Code Status on File) Date Activated Date Inactivated Comments 06/15/2022 3:35 PM 06/20/2022 8:09 PM Care Teams Damper Worker Relationship Specialty Start Date End Date Hitesh Chauhan MD PCP - General Family Practice 08/05/21 Velasquez Cordoba MD [address] [place] [id number] Consulting Physician Neurosurgery 12/01/21 Tika Basurto NP [address] [place] [address] Nurse Practitioner Neurosurgery 12/01/21
--- OUTSIDE RECORDS SUMMARY | 2024-05-09 15:21 | XMS_ITS | Clinical Summary ---
Author Organization [facility] Address [address] [place] [id number] Care Team Providers Care Tattoo Designer Name Role Phone Unavailable Primary Care Provider Unavailabl e Social History Tobacco Use Types Packs/Day Years Used Date Smoking Tobacco: Never Assessed Sex and Gender Information Value Date Recorded Sex Assigned at Not on file Legal Sex Male 5:12 PM CDT Gender Identity Not on file Sexual Orientation Not on file Last Filed Vital Signs Vital Sign Reading Time Taken Comments Blood Pressure 146/88 09/24/2014 12:32 PM CDT Pulse 76 09/24/2014 12:32 PM CDT Temperature - - Respiratory Rate - - Oxygen Saturation - - Inhaled Oxygen Concentration - - Weight 117.7 kg (259 lb 6.4 oz) 015 12:32 PM CDT Height 165.1 cm (5' 5 ) 07/06/2014 10:2 9 AM CDT Body Mass Index 43.17 07/06/2014 10:29 AM CDT Plan of Treatment Health Maintenance Due Date Last Done Comments Colorectal Cancer Screening Colonoscopy (10 Years) 1965 Annual Physical 1968 Hepatitis C 05/17/1983 DTaP, Tdap and Td Vaccines ( 1 - Tdap) 1984 Hepatitis B Vaccines (1 of 3 - 19+ 3-dose series) 1984 Zoster Vaccines (1 of 2) 05/17/2015 COVID-19 Vaccine (2023-2 5 season) 2023 Influenza Adult (#1) 2023 Meningococcal B Vaccine Aged Out No l onger eligible based on patient's age to complete this topic Meningococcal Vaccine Aged Out No roman rosmery eligible based on patient's age to complete this topic Pneumococcal Vaccine: Pediat rics (0 to 5 Years) and At-Risk Patients (6 to 64 Years) Aged Out No longer eligible b ased on patient's age to complete this topic RSV Immunizations Under 20 Months Aged Out No longer eligible based on patient's age to complete this topic
--- OUTSIDE RECORDS SUMMARY | 2024-05-09 15:21 | XMS_ITS | Clinical Summary ---
Author Organization [facility] Address [address] [place] [address] Care Team Providers Care Mid Level Project Manager Name Role Phone Hitesh Chauhan MD Primary Care Provider Allergies No known active allergies Medications albuterol HFA 90 mcg inhalerIndication s:Asthma, mild intermittent, uncomplicated Take 2 Puffs by inhalation every 6 hours as needed for Shortness of Breath. 54 Gram 11 11/16/19 15 Active Insulin Antler, Disposable, (Gunjan Pen Needle) 32 gauge x 5/32 Needle 1 Each by [facility].(Non-Drug; Combo Route) route 2 times daily. 200 Each 3 11/27/19 16 Active blood sugar diagnostic (ONETOUCH VERIO) Strip Check blood sugar 2 times daily. 100 Strip 3 11/27/19 16 Active VENTOLIN HFA 90 mcg/actuation inhaler USE 2 INHALATIONS ORALLY EVERY 6 HOURS NEEDED FORSHORTNESS OF BREATH 54 Gram 3 03/03/19 17 Active lisinopril (PRINIVIL) 10 mg tablet Take 1 Tablet (10 mg) by mouth daily. 90 Tablet 3 03/18/19 17 Active albuterol (PROVENTIL,VENTOL IN) 2.5 mg /3 mL (0.083 %) Solution for Nebulization NEBULIZE CONTENTS OF ONE VIAL EVERY 6 HOURS NEEDED FOR SHORTNESS OF BREATH 180 mL 2 10/23/19 17 Active BD ULTRA-FINE SHORT PEN NEEDLE 31 gauge x 5/16 Needle FOR USE WITH TRESIBA AND VICTOZA BID 3 08/03/19 18 Active SENEXON-S 8.6-50 mg tablet TK 1 TO 2 TS PO QD PRN 1 05/28/19 18 Active oxyCODONE-acetami nophen (PERCOCET) 10-325 mg Tablet Take 1 Tablet by mouth every 4 hours as needed for Pain. Max Daily Amount: 6 Tablets 0 10/09/19 18 Active diazePAM (VALIUM) 5 mg tablet Take 1 Tablet (5 mg) by mouth 4 times daily as needed for Spasm. 60 Tablet 10/11/19 18 Active oxyCODONE (ROXICODONE) 10 mg tablet Take 1 Tablet (10 mg) by mouth every 3 hours as needed for Pain 1 PO q 3-4 hrs prn pain. Max Daily Amount: 80 mg 120 Tablet 10/11/19 18 Active insulin lispro protamine-lispro (HumaLOG MIX 75-25) 100 unit/mL (75-25) vial Inject 85 Units by subcutaneous injection 2 times daily with meals. Active atorvastatin (LIPITOR) 10 mg tablet Take 10 mg by mouth daily. Active PARoxetine HCl (PAXIL) 40 mg tablet Take 40 mg by mouth daily. Active fluticasone propion-salmetero L (Wixela Inhub) 250-50 mcg/dose disk inhaler Take 1 Puff by inhalation 2 times daily. Active Active Problems Patient Care Coordination No te Formatting of this note migh t be different from the original. - endocrinology - urology Problem Noted Date Diagnosed Date Lumbar stenosis 10/05/2017 Hypertriglyceridemia 01/07/2016 DDD (degenerative disc disease), cervical 2015 Overview (10/03/2015): Follows w/ Type 2 diabetes mellitus wit h microalbuminuria, with long-term current use of insulin 10/03/2015 Tubular adenoma of colon 08/31/2015 Trigger middle finger of right hand 08/30/2015 Tobacco use 11/15/2014 Fatty liver 06/06/2012 Hyperlipidemia 2012 Morbid obesity with body mass index of 40.0-49.9 2012 Anxiety and depression 2012 Overview (08/13/2012): - patient was Rx Wellbutrin 07/11 but ne never started SASKIA on CPAP 05/04/2012 Vitamin D deficiency 05/04/2012 Asthma Hypogonadism male Lichen planus Severe obesity (BMI 35.0-39.9) with comorbidity Immunizations Immunization Administration Dates Next Due (PNEUMOVAX 23)(50 YRS UP) PN EUMOCOCCAL POLYSACCHARIDE (PPV23) 0.5 ML, IM 07/06/2012 Influenza Seasonal Unspecified Formulation IM Influenza Vaccine Split 3+ Yrs IM 11/13/2013 Influenza Vaccine Split 3+ Yrs PF IM 01/07/2016, 11/15/2014 Family History Medical History Relation Name Comments Cancer Brother Cancer Father Arthritis-osteo Maternal Aunt Cancer Maternal Aunt Diabetes Maternal Aunt Heart Disease Maternal Aunt Hypertension Maternal Aunt Stroke Maternal Aunt Heart Disease Maternal Grandfather Stroke Maternal Grandfather Heart Disease Maternal Grandmother Stroke Maternal Grandmother Arthritis-osteo Maternal Uncle Cancer Maternal Uncle Diabetes Maternal Uncle Heart Disease Maternal Uncle Hypertension Maternal Uncle Stroke Maternal Uncle Cancer Mother Clotting Disorder Mother Diabetes Mother Hypertension Mother Colon Cancer Neg Hx Relation Name Status Comments Brother Father Maternal Aunt Maternal Grandfather Maternal Grandmother Maternal Uncle Mother Social History Tobacco Use Types Packs/Day Years Used Date Smoking Tobacco: Every Day Cigarettes 1 35 Smokeless Tobacco: Former Chew Tobacco Cessation:Ready to Q uit: No; Counseling Given: Yes Alcohol Use Standard Drinks/Week Comments Yes 0 (1 standard drink = 0.6 oz pur e alcohol) rarely Sex and Gender Information Value Date Recorded Sex Assigned at Not on file Legal Sex Male 9:09 AM WARP DOFFER Gender Identity Not on file Sexual Orientation Not on file Occupation Industry Job Start Date Job End Date 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 [employer] Not on file Not on ralf e Not on file Last Filed Vital Signs Vital Sign Reading Time Taken Comments Blood Pressure 121/69 01/09/2021 9:39 AM WARP DOFFER Pulse 87 01/09/2021 9:39 AM WARP DOFFER Temperature 37.4 C (99.4 F) 01/09/2021 9:25 AM WARP DOFFER Respiratory Rate 16 01/09/2021 9:35 AM WARP DOFFER Oxygen Saturation 94% 01/09/2021 9:35 AM WARP DOFFER Inhaled Oxygen Concentration - - Weight 101 kg (222 lb 9.6 oz) 01/09/2021 7:43 AM WARP DOFFER Height 165.1 cm (5' 5 ) 01/09/2021 7:43 AM WARP DOFFER Body Mass Index 37.04 01/09/2021 7:43 AM WARP DOFFER Plan of Treatment Health Maintenance Due Date Last Done Comments DTAP/TDAP/TD VACCINES (1 - Tdap) 1984 HEPATITIS B VACCINES (1 of 3 - 19+ 3-dose series) 1984 FIT-DNA Q 3 years 2010 FIT/FOBT Q 1 year 2010 Flex Sig/CT Colonography Q 5 years 2010 PNEUMOCOCCAL VACCINE 0-49 YE ARS (2 of 2 - PCV) 07/06/2013 07/06/2012 ZOSTER VACCINE (1 of 2) 05/17/2015 DIABETES ANNUAL RETINAL EXAM 06/07/201610/2015, 11/13/2013, 02/06/2012 DIABETES MICROALBUMIN ANNUAL SCREEN 06/25/2016 06/26/2015, 11/15/2013, 01/31/2013, Additional history exists DIABETES ANNUAL FOOT EXAM 01/06/20172015, 11/15/2014, 11/15/2014, Additional history exists LDL CHOLESTEROL ANNUAL 01/06/2017 6, 06/26/2015, 11/15/2014, Additional history exists DIABETES HBA1C Q 6 MONTHS 04/07/20182017, 01/07/2016, 10/03/2015, Additional history exists COLORECTAL SCREENING 01/09/2022 01/09/2021, 01/09/2021, 01/09/2021, Additional history exists Colorectal Cancer Screening 01/09/2022 INFLUENZA VACCINE (#1) 2023 6, 11/15/2014, 11/13/2013, Additional history exists Medical Devices Implanted Type Area Roller Staker Device Identifier Shelf Expiration Date Model / Serial / Lot Hemostatic Surgiflo 8ml W/Thrombin 2994 - [id number] Implanted:Qty : 1 on 10/05/2017 by Nick Rojas MD at [facility] Hemostatic N/A: Spine Lumbar J[employer]J- [employer] [id number] 11/28/2018 2994 / / [id number] Do Xpdm Crv W/Line 75mm [id number] - [id number] Implanted:Qty : 2 on 10/05/2017 by Nick Rojas MD at [facility] Do N/A: Spine Lumbar J[employer]J- [employer] [id number] / / Set Screw Xpdm Verse 5.5mm - Ssterilized October 01 2017 Implanted:Qty : 6 on 10/05/2017 by Nick Rojas MD at [facility] Screw N/A: Spine Lumbar J[employer]J- [employer] / STERILIZED OCTOBER 01 2017 / LOAD 16 Screw Xpdm Verse 8x50mm - Ssterilized October 01 2017 Implanted:Qty : 1 on 10/05/2017 by Nick Rojas MD at [facility] Screw N/A: Spine Lumbar [employer]- [employer] / STERILIZED OCTOBER 01 2017 / LOAD 16 Screw Xpdm Verse 8x45mm - Ssterilized October 01 2017 Implanted:Qty : 1 on 10/05/2017 by Nick Rojas MD at [facility] Screw N/A: Spine Lumbar J[employer]- [employer] / STERILIZED OCTOBER 01 2017 / LOAD 16 Screw Xpdm Verse 7x50mm - Ssterilized October 01 2017 Implanted:Qty : 1 on 10/05/2017 by Nick Rojas MD at [facility] Screw N/A: Spine Lumbar J[employer]- [employer] / STERILIZED OCTOBER 01 2017 / LOAD 16 Screw Xpdm Verse 7x45mm - Ssterilized October 01 2017 Implanted:Qty : 3 on 10/05/2017 by Nick Rojas MD at [facility] Screw N/A: Spine Lumbar J[employer]J- [employer] / STERILIZED OCTOBER 01 2017 / LOAD 16 Description:All Depuy spinal hardware was processed on requisition, [id number]. Cross Cnnctr Xpdm Sfx 5.5 Ti - Ssterilized October 02 2017 Implanted:Qty : 1 on 10/05/2017 by Nick Rojas MD at [facility] Spine N/A: Spine Lumbar J&J- [employer] / STERILIZED OCTOBER 02 2017 / LOAD 35 Explanted Type Area Roller Staker Device Identifier Shelf Expiration Date Model / Serial / Lot Previously Implanted Hardware Explanted:Qty: 1 on 10/05/2017 by Nick Rojas MD at [facility] Screw N/A: Spine Lumbar Description:TWO SCREWS TWO SET SCREWS ONE DO Procedures Procedure Name Priority Date/Time Associated Diagnosis Comments COLONOSCOPY REPORT 01/09/2021 9: 29 AM WARP DOFFER HEMOGLOBIN A1C Routine 10/05/2017 6:39 PM CDT LIPID PANEL Routine 01/07/2016 9:12 AM WARP DOFFER Mixed hyperlipidemia MICROALBUMIN/CREATI NINE RATIO, RANDOM UR Routine 06/26/2015 11:02 AM CDT Type 2 diabetes mellitus without complication (CMS/HCC) HM DIABETES EYE EXAM Routine 06/08/2015 from Last 3 Months or Most Recently Relevant to Health Maintenance Results * COLONOSCOPY REPORT (01/09/2021 9:29 AM WARP DOFFER) Narrative Procedure Note Yonas Joshua MD - 01/09/2021 9:28 AM CST [facility] Endoscopy Patient Name: Rui Mckinnon Procedure Date: 01/09/2021 Date of : 1965 Attending MD: Yonas Joshua MD Procedure: Colonoscopy Indications: Surveillance: Personal history of adenomatous polyps on last colonoscopy > 3 years ago, Last colonoscopy: July 2015 Providers: Yonas Joshua MD Referring MD: Hitesh Chauhan MD Complications: No immediate complications. Procedure: Informed consent was obtained for the procedure, including moderate sedation after risks were discussed. Based on the pre-procedure assessment, including review of the patient's medical history, medications, allergies, and review of systems, the patient was deemed to be an appropriate candidate for sedation. A timeout was performed. Continuous ECG monitoring, pulse oximetry, blood pressure monitoring, and direct observation were performed. The Colonoscope was introduced through the anus and advanced to the terminal ileum. The colonoscopy was performed without difficulty. The patient tolerated the procedure well. The quality of the bowel preparation was adequate to identify polyps 10 mm and larger in size. Estimated Blood Loss: Estimated blood loss: none. Findings: The digital rectal exam was normal. The terminal ileum appeared normal. A tattoo was seen in the rectum. The tattoo site appeared normal. Thick particulate stool was noted in several areas of the colon. Despite irrigation and suction, lesions less than 10 mm could not be entirely ruled out. Impression: - The examined portion of the ileum was normal. - A tattoo was seen in the rectum. The tattoo site appeared normal. - Thick particulate stool was noted in several areas of the colon. Despite irrigation and suction, lesions less than 10 mm could not be entirely ruled out. Recommendation: - Discharge patient to home. - Continue present medications. - Repeat colonoscopy in 1 year for surveillance due to the quality of the bowel prep. Yonas Joshua MD 01/09/2021 9:28:02 AM This report has been signed electronically. Number of Addenda: [address]; [place] [address] Yonas Joshua MD GI PROCEDURE ORDERABLES Final Result * (ABNORMAL) HEMOGLOBIN A1C (10/05/2017 6:39 PM CDT) HEMOGLOBIN A1C 7.0(H) 4.0 - 6.0 % 10/05/2017 7:17 PM CDT [facility] [employer] [facility] EST. AVG GLUCOSE, A1C 154 mg/dL 10/05/2017 7:17 PM CDT [facility] Blood Venipuncture / Unknown 10/05/2017 6:39 PM CDT 10/05/2017 6:42 PM CDT Narrative [facility] - 10/05/2017 7:17 PM CDT HGB A1C INTERPRETATION NORMAL: <5.7% PRE-DIABETES: 5.7 - 6.4% DIABETES: 6.5% OR GREATER Taya ROWLEY CHEMISTRY ORDERABLES F inal Result [facility] [employer] [facility] CLIA# [id number] [address] [place] [address] * (ABNORMAL) LIPID PANEL (01/07/2016 9:12 AM WARP DOFFER) [facility] CHOLESTEROL 169 <200 mg/dL 01/07/2016 4:45 PM [facility] TRIGLYCERIDE 412(H) <150 mg/dL 01/07/2016 4:45 PM [facility] HDL 32(L) 40 - 59 mg/dL 01/07/2016 4:45 PM [facility] LDL CALCULATED <100 mg/dL 01/07/2016 4:45 PM [facility] Comment:Calculated LDL is no t accurate when the Triglyceride value exceeds 400. NON-HDL CHOLESTEROL 137(H) <130 mg/dL 01/07/2016 4:45 PM [facility] Blood Collection / Unknown 01/07/2016 9:12 AM WARP DOFFER 01/07/2016 2:43 PM WARP DOFFER [facility] - 01/07/2016 4:45 PM [facility] TOTAL CHOLESTEROL mg/dL Desirable <200 Borderline high 200-239 High >=240 TRIGLYCERIDES mg/dL Normal <150 Borderline high 150-199 High 200-499 Very high >=500 HDL CHOLESTEROL mg/dL Low <40 Normal 40-59 Desirable >=60 NON HDL CHOLESTEROL mg/dL Optimal <130 Near Optimal 130-159 Borderline High 160-189 Very High >=190 Calculated LDL mg/dL Optimal <100 Near Optimal 100-129 Borderline High 130-159 High 160-189 Very High >=190 ATPIII Guidelines Reference Ranges for Lipid Panels (NCEP/AMA) Ciara Taylor MD CHEMISTRY ORDERABLES Final R esult [facility] CLIA# [id number] [address] [place] [address] * (ABNORMAL) MICROALBUMIN/CREATININE RATIO, RANDOM UR (06/26/2015 11:02 AM CDT) [facility] MICROALBUMIN, URINE 4.7 mg/dL 06/26/2015 2:29 PM T [facility] CREATININE, URINE 113.5 40.0 - 278.0 mg/dL 06/26/2015 2:29 PM T [facility] Comment: Reference Range varies with fluid intake and diet. MICROALBUMIN/CR EAT RATIO, UR 41.4(H) 0.0 - 29.0 mg/g Creatinine 06/26/2015 2:29 PM T [facility] Comment: Condition mg/g Creatinine Normal Males <17 Normal Females <25 Microalbuminuria Males 17-299 Microalbuminuria Females 25-299 Overt proteinuria >=300 Urine URINE SPECIMEN OBTAINED BY CLEAN CATCH PROCEDURE / Unknown Collection / Unknown 06/26/2015 11:02 AM CDT 06/26/2015 1:35 PM CDT Ciara Taylor MD URINE ORDERABLES Final Resul t [facility]# [id number] [address] [place] [address] * DIABETES EYE EXAM (06/08/2015) Abstract Provider HEALTH MAINTENANCE Edited Resu lt - Final Performing Organization Address City/[facility]/ZIP Co de Phone Number [facility] from Last 3 Months or Most Recently Relevant to Health Maintenance Insurance [facility] [id number] Advance Directives For more information, please contact: [phone] * Full Code (Latest Code Status on File) Date Activated Date Inactivated Comments 01/09/2021 7:44 AM 01/09/2021 12:18 PM * Full Code Date Activated Date Inactivated Comments 10/05/2017 6:23 PM 10/11/2017 12:00 AM * Full Code Date Activated Date Inactivated Comments 10/05/2017 10:47 AM 10/05/2017 6:23 PM * Full Code Date Activated Date Inactivated Comments 10/05/2017 9:53 AM 10/05/2017 10:47 AM * Full Code Date Activated Date Inactivated Comments 08/29/2015 6:39 AM 08/29/2015 10:19 AM Care Teams Mid Level Project Manager Relationship Specialty Start Date End Date Hitesh Chauhan MD [address] [place] [id number] PCP - General Family Practice 09/23/20
--- OUTSIDE RECORDS SUMMARY | 2024-05-09 15:21 | XMS_ITS | Patient Health Summary ---
Author Organization [facility] Address [address] [place] [address] Care Team Providers Care Finance Professor Name Role Phone Unavailable Primary Care Provider Unavailabl e Note from [facility],non-owned Affiliates and Associated Physician Practices is amultiple site organization consisting of ambulatory clinics and hospital sitesin [place], [place], [place] and [place]. This disclosure is being madepursuant to the Care Everywhere program and may not contain all information available regarding this patient. Last updated 17.[facility] Allergies No known active allergies Medications * Be aware that medications may not be up to date on this document. Alwaysverify current medications with the patient. * cloNIDine (CATAPRES) 0.1 MG tablet(Started 04/21/2016) Take 1 Tab by mouth 3 times daily as needed Reasons: Codeine/Morphine-Like Drug Withdrawal Syndrome * methocarbamol (ROBAXIN) 750 MG tablet(Started 04/21/2016) Take 1 Tab by mouth every 6 hours as needed for Muscle Spasms Reasons: Musculoskeletal Pain * oxyCODONE-acetaminophen (PERCOCET) 5-325 MG tablet Take 1 Tab by mouth every 8 hours as needed for Pain * metFORMIN (GLUCOPHAGE) 1000 MG tablet Take 1,000 mg by mouth 2 times daily with morning and evening meal * gabapentin (NEURONTIN) 800 MG tablet Take 800 mg by mouth 3 times daily * fenofibrate (TRICOR) 145 MG tablet Take 145 mg by mouth once daily * aspirin EC (ECOTRIN) 81 MG tablet Take 81 mg by mouth once daily * lisinopril (PRINIVIL; ZESTRIL) 10 MG tablet Take 10 mg by mouth once daily * DULoxetine (CYMBALTA) 60 MG capsule(Started 06/02/2016) Take 1 Cap by mouth once daily Reasons: Major Depressive Disorder * buPROPion SR 12hr (WELLBUTRIN-SR) 100 MG tablet Take 100 mg by mouth 2 times daily Social History Tobacco Use Types Packs/Day Years Used Date Smoking Tobacco: Never Sex and Gender Information Value Date Recorded Sex Assigned at Not on file Gender Identity Not on file Sexual Orientation Not on file Last Filed Vital Signs Vital Sign Reading Time Taken Comments Blood Pressure 142/84 04/21/2016 2:44 PM TECHNICIAN AUTOMATIC Pulse 68 04/21/2016 2:44 PM TECHNICIAN AUTOMATIC Temperature 36.4 C (97.6 F) 04/21/2016 2:44 PM TECHNICIAN AUTOMATIC Respiratory Rate 16 04/21/2016 2:44 PM TECHNICIAN AUTOMATIC Oxygen Saturation - - Inhaled Oxygen Concentration - - Weight 119.7 kg (264 lb) 04/21/2016 2:44 PM TECHNICIAN AUTOMATIC Height 170.2 cm (5' 7 ) 04/21/2016 2:44 PM TECHNICIAN AUTOMATIC Body Mass Index 41.35 04/21/2016 2:44 PM TECHNICIAN AUTOMATIC
--- OUTSIDE RECORDS SUMMARY | 2024-05-09 15:21 | XMS_ITS | Referral Summary ---
Author Organization [facility] Address [address] [place] [address] Care Team Providers Care Platform Architect Name Role Phone Hitseh Chauhan MD Primary Care Provider Velasquez Cordoba MD Unavailable [phone] Tika aBsurto NP Unavailable [phone] Allergies No known active allergies Medications albuterol [...] (04/28/2022): Added automatically from request for surgery [id number] Chronic low back pain with left-sided sciatica [...] Intramu scular 01/07/2016,11/15/2014 Pneumococcal Polysaccharide PPV23 07/06/2012 Social History Tobacco Use Types Packs/Day Years [...] on file 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 Gender Identity Not on file Sexual Orientation [...] 06/24/2023 10:49 AM CDT Plan of Treatment Not on file Medical Devices Implanted Type Area Board Catcher Device Identifier Shelf Expiration Date Model / Serial / Lot Allosource Canpac Nonpurge Frozen Graft 50cc Bone [id number] - [id number] - [id number] Implanted:Qty: 1 on 06/15/2022 by Velasquez Cordoba MD at [facility] N/A: Spine Lumbar [employer] 01/29/2027 [id number] / [id number] / Description:ID: [id number] [facility] Medical Creo Thread Spinal Cap Locking Nonsterile 1119.0010 - [id number] Implanted:Qty: 7 on 06/15/2022 by Velasquez Cordoba MD at [facility] N/A: Spine Lumbar [employer] 1119.0010 / / [employer] Graft Bone Filler Resorbable Mesh [id number] - [id number] - [id number] Implanted:Qty: 1 on 06/15/2022 by Velasquez Cordoba MD at [facility] N/A: Spine Lumbar [employer] [id number] 09/26/2023 [id number] / [id number] / [id number] [employer] Graft Bone Filler Resorbable Mesh [id number] - [id number] - [id number] Implanted:Qty: 1 on 06/15/2022 by Velasquez Cordoba MD at [facility] N/A: Spine Lumbar [employer] [id number] 03/28/2023 [id number] / [id number] / [id number] [employer] Graft Bone Filler Resorbable Mesh [id number] - [id number] - [id number] Implanted:Qty: 1 on 06/15/2022 by Velasquez Cordoba MD at [facility] N/A: Spine Lumbar [employer] [id number] 10/27/2023 [id number] / [id number] / [id number] [employer] Altera [id number] 15d Spacer Spinal 1124.1132 - [id number] Implanted:Qty: 1 on 06/15/2022 by Velasquez Cordoba MD at [facility] N/A: Spine Lumbar [employer] 1124.1132 / / [employer] Creo Amp 7.5mm 45mm Cannulated Modular Spine Screw Bone 1067.4745 - [id number] Implanted:Qty: 5 on 06/15/2022 by Velasquez Cordoba MD at [facility] N/A: Spine Lumbar [employer] 1067.4745 / / [employer] Creo 7.5mm 50mm Cannulated Modular Spine Screw Bone 1067.4750 - [id number] Implanted:Qty: 2 on 06/15/2022 by Velasquez Cordoba MD at [facility] N/A: Spine Lumbar [facility] Medical 1067.4750 / / [employer] 7146.011 Creo Amp Polyaxial Thread Tulip Spine Transfacet Screw Bone Cocr - [id number] Implanted:Qty: 7 on 06/15/2022 by Velasquez Cordoba MD at [facility] N/A: Spine Lumbar [facility] 7146.0110 / / [employer] 7134.71 Creo Mis 5.5mm 100mm Curve Elier Spinal Cocr - [id number] Implanted:Qty: 2 on 06/15/2022 by Velasquez Cordoba MD at [facility] N/A: Spine Lumbar [facility] 7134.7100 / / Procedures Procedure Name Priority Date/Time Associated Diagnosis Comments EGFR Routine 06/20/2022 4:40 AM CDT HEMOGLOBIN A1C Routine 06/05/2022 10:39 AM CDT Spondylolisthesis of lumbar region Pre-operative exam from Last 3 Months or Most Recently Relevant to Health Maintenance Results * eGFR (06/20/2022 4:40 AM CDT) eGFR 113 mL/min/1. 73 m2 [facility] Comment: Interpretive Data Reference Interval Normal >/= [...] 4:40 AM CDT 06/20/2022 4:55 AM CDT May Lola Art DO LAB BLOOD ORDERABLES Fi nal Result Performing Organization Address [facility] Co de Phone Number [address] [place] [address] * (ABNORMAL) Hemoglobin A1c (06/05/2022 10:39 AM CDT) Hgb A1C 6.7(H) 4.0 - 5.6 % [facility] Estimated Average Glucose 146 mg/dL [facility] Comment: The ADA recommends reporting an estimated Average Glucose (eAG) with all Hemoglobin A1c results using the equation derived from a study of 507 normal and diabetic adults. Minority populations were underrepresented and children were not included. (Diabetes Care 31:9474-5588, 2008). The eAG is not equivalent to a fasting glucose. Blood 06/05/2022 10:3 9 AM CDT 06/05/2022 10:49 AM CDT Velasquez Cordoba MD LAB BLOOD ORDERABLES Final Result Performing Organization Address [facility] Co de Phone Number [address] [place] [address] from Last 3 Months or Most Recently Relevant to Health Maintenance Insurance [facility] [employer] Advance Directives For more information, please contact: [phone] * Full Code (Latest Code Status on File) Date Activated Date Inactivated Comments 06/15/2022 3:35 PM 06/20/2022 8:09 PM Care Teams Platform Architect Relationship Specialty Start Date End Date Hitesh Chauhan MD PCP - General Family Practice 08/05/21 Velasquez Cordoba MD [address] [address] Consulting Physician Neurosurgery 12/01/21 Tika Basurto NP [address] [address] Nurse Practitioner Neurosurgery 12/01/21
--- OUTSIDE RECORDS SUMMARY | 2024-05-09 15:21 | XMS_ITS | Referral Summary ---
Author Organization [facility] Address [address] [place] [address] Care Team Providers Care Window Trimmer Name Role Phone Unavailable Primary Care Provider Unavailabl e Source Comments [facility],non-owned Affiliates and Associated Physician Practices is amultiple site organization consisting of ambulatory clinics and hospital sitesin [place], [place], [place] and [place]. This disclosure is being madepursuant to the Care Everywhere program and may not contain all information available regarding this patient. Last updated 17.[facility] Allergies No known active allergies Medications * Be aware that medications may not be up to date on this document. Alwaysverify current medications with the patient. Medication Sig Dispensed Refills Start Date End Date Status cloNIDine (CATAPRES) 0.1 MG tabletIndications: Opioid Withdrawal Syndrome Take 1 Tab by mouth 3 times daily as needed Reasons: Codeine/Morphine-Like Drug Withdrawal Syndrome 45 Tab 04/21/2016 Active methocarbamol (ROBAXIN) 750 MG tabletIndications: Musculoskeletal Pain Take 1 Tab by mouth every 6 hours as needed for Muscle Spasms Reasons: Musculoskeletal Pain 60 Tab 04/21/2016 Active oxyCODONE-acetamin ophen (PERCOCET) 5-325 MG tablet Take 1 Tab by mouth every 8 hours as needed for Pain Active metFORMIN (GLUCOPHAGE) 1000 MG tablet Take 1,000 mg by mouth 2 times daily with morning and evening meal Active gabapentin (NEURONTIN) 800 MG tablet Take 800 mg by mouth 3 times daily Active fenofibrate (TRICOR) 145 MG tablet Take 145 mg by mouth once daily Active aspirin EC (ECOTRIN) 81 MG tablet Take 81 mg by mouth once daily Active lisinopril (PRINIVIL; ZESTRIL) 10 MG tablet Take 10 mg by mouth once daily Active DULoxetine (CYMBALTA) 60 MG capsuleIndications :Major Depressive Disorder Take 1 Cap by mouth once daily Reasons: Major Depressive Disorder 30 Cap 06/02/2016 Active buPROPion SR 12hr (WELLBUTRIN-SR) 100 MG tablet Take 100 mg by mouth 2 times daily Active Social History Tobacco Use Types Packs/Day Years Used Date Smoking Tobacco: Never Sex and Gender Information Value Date Recorded Sex Assigned at Not on file Gender Identity Not on file Sexual Orientation Not on file Last Filed Vital Signs Vital Sign Reading Time Taken Comments Blood Pressure 142/84 04/21/2016 2:44 PM MAILING MANAGER Pulse 68 04/21/2016 2:44 PM MAILING MANAGER Temperature 36.4 C (97.6 F) 04/21/2016 2:44 PM MAILING MANAGER Respiratory Rate 16 04/21/2016 2:44 PM MAILING MANAGER Oxygen Saturation - - Inhaled Oxygen Concentration - - Weight 119.7 kg (264 lb) 04/21/2016 2:44 PM MAILING MANAGER Height 170.2 cm (5' 7 ) 04/21/2016 2:44 PM MAILING MANAGER Body Mass Index 41.35 04/21/2016 2:44 PM MAILING MANAGER Plan of Treatment Not on file
--- OUTSIDE RECORDS SUMMARY | 2024-05-09 15:21 | XMS_ITS | Clinical Summary ---
Author Organization [facility] Address [address] [facility] [facility] [place] [address] Care Team Providers Care Pharmaceutical Compounding Supervisor Name Role Phone Unavailable Primary Care Provider Unavailabl e Source Comments [facility],non-owned Affiliates and Associated Physician Practices is amultiple site organization consisting of ambulatory clinics and hospital sitesin [place], [place], [place] and [place]. This disclosure is being madepursuant to the Care Everywhere program and may not contain all information available regarding this patient. Last updated 17.[facility] Allergies No known active allergies Medications * [...] mg by mouth 2 times daily Active Family History Medical History Relation Name Comments Alcohol abuse Brother Schizophrenia Brother Relation Name Status Comments Brother Social History Tobacco Use Types Packs/Day Years Used Date Smoking Tobacco: Never Sex and Gender Information Value Date Recorded Sex Assigned at Not on file Gender Identity Not on file Sexual Orientation Not on file Last Filed Vital Signs Vital Sign Reading Time Taken Comments Blood Pressure 142/84 04/21/2016 2:44 PM 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 Pulse 68 04/21/2016 2:44 PM 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 Temperature 36.4 C (97.6 F) 04/21/2016 2:44 PM 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 Respiratory Rate 16 04/21/2016 2:44 PM 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 Oxygen Saturation - - Inhaled Oxygen Concentration - - Weight 119.7 kg (264 lb) 04/21/2016 2:44 PM 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 Height 170.2 cm (5' 7 ) 04/21/2016 2:44 PM 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 Body Mass Index 41.35 04/21/2016 2:44 PM 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 Plan of Treatment Health Maintenance Due Date Last Done Comments COLOGUARD (AGES 45-75) - COL ON CA SCREENING 1965 COLON MONITORING 1965 COLONOSCOPY - COLON CA SCREENING 1965 CT COLONOGRAPHY - COLON CA SCREENING 1965 Colorectal Cancer Screening 1965 FIT - COLON CA SCREENING 1965 FLEX SIG - COLON CA SCREENING 1965 LIPID TESTING 1965 HIV SCREENING 1980 HEPATITIS C SCREENING 05/12/1983 DTAP/TDAP/TD VACCINES (1 - Tdap) 1984 HEPATITIS B VACCINE (1 of 3 - 19+ 3-dose series) 1984 PNEUMOCOCCAL VACCINE 50+ (1 of 1 - PCV) 05/17/2015 ZOSTER VACCINE (1 of 2) 05/17/2015 COVID-19 VACCINE ( - 2023-2 5 season) 2023 INFLUENZA VACCINE (#1) 2023 DEPRESSION SCREENING 03/01/2024 MEDICARE AWV CALENDAR YEAR 2024 HIB VACCINE Aged Out No longer eligi ble based on patient's age to complete this topic HPV VACCINE Aged Out No longer eligi ble based on patient's age to complete this topic MENINGOCOCCAL (Group B) VACCINE Aged Out No longer eligible based on patient's age to complete this topic MENINGOCOCCAL VACCINE Aged Out No roman rosmery eligible based on patient's age to complete this topic PNEUMOCOCCAL VACCINE Aged Out No long er eligible based on patient's age to complete this topic
[2024-05-09 19:20] LABS: Hematocrit 50.4 % (42.0-52.0); Hemoglobin 16.9 g/dL (14.0-18.0); Mean Corpuscular HGB Conc 33.5 g/dl (32-36); Mean Corpuscular Volume 92.3 fl (80-100); Mean Platelet Volume 11.7 fl (7.4-10.4); Platelet Count Result 170 k/mm3 (150-375); Red Blood Count 5.46 M/mm3 (4.6-6.20); Red Cell Distribution Width 13.4 % (11.5-14.5)
[2024-05-09 20:00] LABS: Alanine Aminotransferase 29 U/L (6-50); Albumin Level 4.5 g/dL (3.5-5.1); Alkaline Phosphatase 72 U/L (38-126); Anion Gap 8 mmol/L (4-12); Aspartate Amino Transferase 41 U/L (17-59); Bilirubin,Total 0.4 mg/dL (0.2-1.3); Blood Urea Nitrogen 24 mg/dL (9-20); Calcium 9.9 mg/dL (8.4-10.2); Carbon Dioxide 29 mmol/L (22-30); Chloride 102 mmol/L (98-107); Cholesterol 129 mg/dL (0-200); Estimated Glomerular Filt Rate > 60; Glucose 145 mg/dL (65-110); HDL Direct 42 mg/dL; Potassium 4.6 mmol/L (3.4-5.0); Sodium 139 mmol/L (137-145); Triglycerides 271 mg/dL (<150)
[2024-05-09 20:09] LABS: Creatinine Urine 81.2 mg/dL
[2024-05-09 20:11] LABS: LDL Cholesterol Direct 49 mg/dL
[2024-05-09 20:13] LABS: Iron 84 ug/dL (49-181)
[2024-05-09 20:14] LABS: MALB Creatinine Ratio 48.4 mg/g (0-30); Microalbumin Urine Random 39.3 mg/L (0-16.7)
[2024-05-09 20:23] LABS: Percent Iron Saturation 23 % (20-50)
[2024-05-09 20:39] LABS: Free T4 Free Thyroxine 0.97 ng/dL (0.78-2.19); Vitamin D 25 Hydroxy 27.1 ng/mL
== END 2024-05-09 13:42 | disposition home or self-care (01) ==
LOC: ANHGOSHLAB 13:43
PROVIDERS: PCP Family Medicine; Visit Provider Nurse Practitioner Family
DX: E11.10 Type 2 diabetes mellitus with ketoacidosis without coma (principal); E78.5 Hyperlipidemia, unspecified; I10 Essential (primary) hypertension; E55.9 Vitamin D deficiency, unspecified; Z79.4 Long term (current) use of insulin
CPT/HCPCS: 36415; 80053; 80061; 82043; 82306; 82607; 82985; 83540; 83550; 84439; 84443; 85027

== ENCOUNTER 2024-06-01 08:29 | Outpatient (CLI) | payer MEDICARE, SELFPAY ==
--- NOTE | ~2024-06-01 | XR_ITS ---
Left Knee Technique: AP, lateral, and sunrise views were obtained. Clinical History: Pain Findings: No fracture or dislocation is seen. Osseous alignment is anatomic. There is mild tricompart mental degenerative change. Soft tissues are unremarkable. No joint effusion is seen. Impression: Mild degenerative change. Reviewed, dictated and finalized at [facility]. Impression: Mild degenerative change.
--- NOTE | ~2024-06-01 | XR_ITS ---
Lumbosacral Spine: AP and lateral views Clinical History: Pain COMPARISON: 10/15/2022 Findings: The normal lordotic curve is maintained. Stable posterior and interbody fusion from L2 thro ugh L5. There is moderate degenerative disc narrowing at L1-L2. There is advanced degenerative disc n arrowing at L3-L4. The sacroiliac joints are normally outlined. Impression: No interval change. Stable postoperative findings and degenerative spondylosis, as above. Reviewed, dictated and finalized at location . Impression: No interval change. Stable postoperative findings and degenerative spondylosis, as above.
--- NOTE | ~2024-06-01 | XR_ITS ---
[id number] 06/01/2024 09:03 Indication: Neck pain Procedure: 5 views cervical spine Comparison: No prior studies for comparison. Findings: There are surgical changes of anterior fusion at C5-C7 with interbody placement at these le vels. Lateral masses normally aligned. Odontoid process within normal limits. Mild dextrocurvature of the cervical spine. There is left carotid atherosclerosis. Lung apices are normal. Odontoid process is normal. Lateral masses normally aligned. No acute fracture or traumatic malalignment. There is mil d multilevel uncinate and facet hypertrophy. Impression: 1: Mild cervical spondylosis with anterior fusion changes at C5-C7. Reviewed, dictated and finalized at location A. Impression: 1: Mild cervical spondylosis with anterior fusion changes at C5-C7.
--- NOTE | ~2024-06-01 | XR_ITS ---
Right Knee Technique: AP, lateral, and sunrise views were obtained. Clinical History: Pain Findings: No fracture or dislocation is seen. Osseous alignment is anatomic. Mild tricompartmental de generative spurring present. Soft tissues are unremarkable. No joint effusion is seen. Impression: Mild tricompartmental degenerative spurring. Reviewed, dictated and finalized at location . Impression: Mild tricompartmental degenerative spurring.
== END 2024-06-01 08:30 | disposition home or self-care (01) ==
PROVIDERS: PCP Pain Medicine Interventional Pain Medicine; Visit Provider Pain Medicine Interventional Pain Medicine
DX: M51.369 Other intervertebral disc degeneration, lumbar region without mention of lumbar back pain or lower extremity pain (principal); M25.761 Osteophyte, right knee; M17.12 Unilateral primary osteoarthritis, left knee
CPT/HCPCS: 72040; 72100; 73562

== ENCOUNTER 2024-10-03 08:08 | Outpatient (CLI) | payer MEDICARE, SELFPAY ==
--- OUTSIDE RECORDS SUMMARY | 2024-10-03 08:11 | XMS_ITS | Clinical Summary ---
Author Organization [facility] Address [address] [place] [address] Care Team Providers Care Student Life Vice President Name Role Phone Hitesh Chauhan MD Primary Care Provider Allergies No known active allergies Medications albuterol HFA 90 mcg inhalerIndication s:Asthma, mild intermittent, uncomplicated Take 2 Puffs by inhalation every 6 hours as needed for Shortness of Breath. 54 Gram 11 11/16/19 15 Active Insulin [place], Disposable, (Gunjan Pen Needle) 32 gauge x 5/32 Needle 1 Each by [facility] [place]Non-Drug; Combo Route) route 2 times daily. 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 [employer] Not on file Not on ralf e Not on file Last Filed Vital Signs Vital Sign Reading Time Taken Comments Blood Pressure 121/69 01/09/2021 9:39 AM INSPECTOR PAWNSHOP DETAIL Pulse 87 01/09/2021 9:39 AM INSPECTOR PAWNSHOP DETAIL Temperature 37.4 C (99.4 F) 01/09/2021 9:25 AM INSPECTOR PAWNSHOP DETAIL Respiratory Rate 16 01/09/2021 9:35 AM INSPECTOR PAWNSHOP DETAIL Oxygen Saturation 94% 01/09/2021 9:35 AM INSPECTOR PAWNSHOP DETAIL Inhaled Oxygen Concentration - - Weight 101 kg (222 lb 9.6 oz) 01/09/2021 7:43 AM INSPECTOR PAWNSHOP DETAIL Height 165.1 cm (5' 5) 01/09/2021 7:43 AM INSPECTOR PAWNSHOP DETAIL Body Mass Index 37.04 01/09/2021 7:43 AM INSPECTOR PAWNSHOP DETAIL Plan of Treatment Health Maintenance Due Date Last Done Comments DTAP/TDAP/TD VACCINES (1 - Tdap) 1984 HEPATITIS B VACCINES (1 of 3 - 19+ 3-dose series) 1984 FIT-DNA Q 3 years 2010 FIT/FOBT Q 1 year 2010 Flex Sig/CT Colonography Q 5 years 2010 ZOSTER VACCINE (1 of 2) 05/17/2015 DIABETES [...] Colorectal Cancer Screening 01/09/2022 INFLUENZA VACCINE (#1) 2024 6, 11/15/2014, 11/13/2013, Additional history exists Medical Devices Implanted Type Area Asset Accountant Device Identifier Shelf Expiration Date Model / Serial / Lot Hemostatic Surgiflo 8ml W/Thrombin 2994 - [id number] Implanted:Qty : 1 on 10/05/2017 by Nick Rojas MD at [facility] Hemostatic N/A: Spine Lumbar J[employer]- [employer] [id number] 11/28/2018 2994 / / [id number] Do Xpdm Crv W/Line 75mm [id number] - [id number] Implanted:Qty : 2 on 10/05/2017 by Nick Rojas MD at [facility] Do N/A: Spine Lumbar [employer]- [employer] [id number] / / Set Screw Xpdm Verse 5.5mm - Ssterilized October 01 2017 Implanted:Qty : 6 on 10/05/2017 by Nick Rojas MD at [facility] [place] Screw N/A: Spine Lumbar J[employer]- [employer] / STERILIZED OCTOBER 01 2017 / LOAD 16 Screw Xpdm Verse 8x50mm - Ssterilized October 01 2017 Implanted:Qty : 1 on 10/05/2017 by Nick Rojas MD at [facility] [place] Screw N/A: Spine Lumbar J[employer]- [employer] / STERILIZED OCTOBER 01 2017 / LOAD 16 Screw Xpdm Verse 8x45mm - Ssterilized October 01 2017 Implanted:Qty : 1 on 10/05/2017 by Nick Rojas MD at [facility] Screw N/A: Spine Lumbar [employer]- [employer] / STERILIZED OCTOBER 01 2017 / LOAD 16 Screw Xpdm Verse 7x50mm - Ssterilized October 01 2017 Implanted:Qty : 1 on 10/05/2017 by Nick Rojas MD at [facility] Screw N/A: Spine Lumbar [employer]- [employer] / STERILIZED OCTOBER 01 2017 / LOAD 16 Screw Xpdm Verse 7x45mm - Ssterilized October 01 2017 Implanted:Qty : 3 on 10/05/2017 by Nick Rojas MD at [facility] Screw N/A: Spine Lumbar [employer]- [employer] / STERILIZED OCTOBER 01 2017 / LOAD 16 Description:All Depuy spinal hardware was processed on requisition, [id number]. Cross Cnnctr Xpdm Sfx 5.5 Ti - Ssterilized October 02 2017 Implanted:Qty : 1 on 10/05/2017 by Nick Rojas MD at [facility] Spine N/A: Spine Lumbar J[employer]- [employer] / STERILIZED OCTOBER 02 2017 / LOAD 35 Explanted Type Area Asset Accountant Device Identifier Shelf Expiration Date Model / Serial / Lot Previously Implanted Hardware Explanted:Qty: 1 on 10/05/2017 by Nick Rojas MD at [facility] Screw N/A: Spine Lumbar Description:TWO SCREWS TWO SET SCREWS ONE DO Procedures Procedure Name Priority Date/Time Associated Diagnosis Comments COLONOSCOPY REPORT 01/09/2021 9: 29 AM INSPECTOR PAWNSHOP DETAIL HEMOGLOBIN A1C Routine 10/05/2017 6:39 PM CDT LIPID PANEL Routine 01/07/2016 9:12 AM INSPECTOR PAWNSHOP DETAIL Mixed hyperlipidemia MICROALBUMIN/CREATI NINE RATIO, RANDOM UR Routine 06/26/2015 11:02 AM CDT Type 2 diabetes mellitus without complication (CMS/HCC) HM DIABETES EYE EXAM Routine 06/08/2015 from Last 3 Months or Most Recently Relevant to Health Maintenance Results * COLONOSCOPY REPORT (01/09/2021 9:29 AM INSPECTOR PAWNSHOP DETAIL) Narrative Procedure Note Yonas Joshua MD - 01/09/2021 9:28 AM CST [facility] Endoscopy Patient Name: Rui Mckinnon Procedure [...] of Addenda: [address]; [place] [address] Yonas Joshua MD GI PROCEDURE ORDERABLES Final Result * (ABNORMAL) HEMOGLOBIN A1C (10/05/2017 6:39 PM CDT) HEMOGLOBIN A1C 7.0(H) 4.0 - 6.0 % 10/05/2017 7:17 PM CDT [facility] EST. AVG GLUCOSE, A1C 154 mg/dL 10/05/2017 7:17 PM CDT [facility] Blood Venipuncture / Unknown 10/05/2017 6:39 PM CDT 10/05/2017 6:42 PM CDT Narrative [facility] - 10/05/2017 7:17 PM CDT HGB A1C INTERPRETATION NORMAL: <5.7% PRE-DIABETES: 5.7 - 6.4% DIABETES: 6.5% OR GREATER Taya ROWLEY CHEMISTRY ORDERABLES F inal Result [facility] CLIA# [id number] [address] [place] [address] * (ABNORMAL) LIPID PANEL (01/07/2016 9:12 AM INSPECTOR PAWNSHOP DETAIL) CHOLESTEROL 169 <200 mg/dL 01/07/2016 4:45 PM [facility] TRIGLYCERIDE 412(H) <150 mg/dL 01/07/2016 4:45 PM [facility] HDL 32(L) 40 - 59 mg/dL 01/07/2016 4:45 PM [facility] LDL CALCULATED <100 mg/dL 01/07/2016 4:45 PM [facility] Comment:Calculated LDL is no t accurate when the Triglyceride value exceeds 400. NON-HDL CHOLESTEROL 137(H) <130 mg/dL 01/07/2016 4:45 PM [facility] Blood Collection / Unknown 01/07/2016 9:12 AM INSPECTOR PAWNSHOP DETAIL 01/07/2016 2:43 PM [facility] Narrative [facility] - 01/07/2016 4:45 PM [facility] TOTAL CHOLESTEROL mg/dL Desirable <200 [...] Guidelines Reference Ranges for Lipid Panels (NCEP/AMA) us Ciara Taylor MD CHEMISTRY ORDERABLES Final R esult [facility]# [id number] [address] [place] [id number] * (ABNORMAL) MICROALBUMIN/CREATININE RATIO, RANDOM UR (06/26/2015 11:02 AM CDT) MICROALBUMIN, URINE 4.7 mg/dL 06/26/2015 2:29 PM CDT [facility] CREATININE, URINE 113.5 40.0 - 278.0 mg/dL 06/26/2015 2:29 PM CDT [facility] Comment: Reference Range varies with fluid intake and diet. MICROALBUMIN/CR EAT RATIO, UR 41.4(H) 0.0 - 29.0 mg/g Creatinine 06/26/2015 2:29 PM CDT [facility] Comment: Condition mg/g Creatinine Normal Males <17 Normal Females <25 Microalbuminuria Males 17-299 Microalbuminuria Females 25-299 Overt proteinuria >=300 Urine URINE SPECIMEN OBTAINED BY CLEAN CATCH PROCEDURE / Unknown Collection / Unknown 06/26/2015 11:02 AM CDT 06/26/2015 1:35 PM CDT Ciara Taylor MD URINE ORDERABLES Final Resul t [facility] CLIA# [id number] [address] [place] [address] * DIABETES EYE EXAM (06/08/2015) Abstract Provider HEALTH MAINTENANCE Edited Resu lt - Final Performing Organization Address City/[facility]/ZIP Co de Phone Number [facility] from Last 3 Months or Most Recently Relevant to Health Maintenance [place] [address] [address] [place] [address] Advance Directives For more information, please contact: [phone] * Full Code (Latest Code Status on [...] 6:39 AM 08/29/2015 10:19 AM Care Teams Student Life Vice President Relationship Specialty Start Date End Date Hitesh Chauhan MD [address] [place] [id number] PCP - General Family Practice 09/23/20
--- OUTSIDE RECORDS SUMMARY | 2024-10-03 08:11 | XMS_ITS | Patient Health Record ---
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
--- OUTSIDE RECORDS SUMMARY | 2024-10-03 08:11 | XMS_ITS | Clinical Summary ---
Author Organization [facility] Address [address] [place] [address] Care Team Providers Care Dental Office Assistant Name Role Phone Unavailable Primary Care Provider [...] 12:32 PM CDT Height 165.1 cm (5' 5) 07/06/2014 10:2 9 AM CDT Body Mass Index 43.17 07/06/2014 10:29 AM CDT Plan of Treatment Health Maintenance Due Date Last Done Comments Colorectal Cancer Screening Colonoscopy (10 Years) 1965 Annual Physical 1968 Hepatitis C 05/17/1983 DTaP, Tdap and Td Vaccines ( 1 - Tdap) 1984 Pneumococcal Vaccine: 50+ Ye ars (1 of 1 - PCV) 05/17/2015 Zoster Vaccines (1 of 2) 05/17/2015 COVID-19 Vaccine ( - 2023-2 5 season) 2023 Meningococcal B Vaccine Aged Out No l onger eligible based on patient's age to complete this topic Meningococcal Vaccine Aged Out No roman rosmery eligible based on patient's age to complete this topic RSV Immunizations Under 20 Months Aged Out No longer eligible based on patient's age to complete this topic
[2024-10-03 19:16] LABS: Alanine Aminotransferase 25 U/L (6-50); Albumin Level 4.4 g/dL (3.5-5.1); Alkaline Phosphatase 65 U/L (38-126); Anion Gap 7 mmol/L (4-12); Aspartate Amino Transferase 39 U/L (17-59); Bilirubin,Total 0.6 mg/dL (0.2-1.3); Blood Urea Nitrogen 17 mg/dL (9-20); Calcium 9.8 mg/dL (8.4-10.2); Carbon Dioxide 26 mmol/L (22-30); Chloride 104 mmol/L (98-107); Cholesterol 131 mg/dL (0-200); Estimated Glomerular Filt Rate > 60; Glucose 126 mg/dL (65-110); HDL Direct 45 mg/dL; Potassium 4.8 mmol/L (3.4-5.0); Sodium 137 mmol/L (137-145); Total Protein 7.6 g/dL (6.3-8.2); Triglycerides 141 mg/dL (<150)
[2024-10-03 19:32] LABS: Free T4 Free Thyroxine 0.97 ng/dL (0.78-2.19)
[2024-10-03 19:52] LABS: Thyroid Stimulating Hormone 0.837 uIU/mL (0.465-4.680)
[2024-10-03 20:12] LABS: Vitamin B12 561.0 pg/mL (239-931)
[2024-10-03 20:44] LABS: MALB Creatinine Ratio 26.0 mg/g (0-30)
== END 2024-10-03 08:09 | disposition home or self-care (01) ==
LOC: ANHGOSHLAB 08:09
PROVIDERS: PCP Family Medicine; Visit Provider Nurse Practitioner Family
DX: E78.5 Hyperlipidemia, unspecified (principal); E11.9 Type 2 diabetes mellitus without complications; I10 Essential (primary) hypertension; E55.9 Vitamin D deficiency, unspecified; Z79.4 Long term (current) use of insulin
CPT/HCPCS: 36415; 80053; 80061; 82043; 82306; 82607; 84439; 84443

== ENCOUNTER 2024-10-10 13:50 | Outpatient (CLI) | payer MEDICARE, SELFPAY ==
--- NOTE | ~2024-10-10 | CT_ITS ---
EXAMINATION: CT lung screening DATE: 10/10/2024 14:10 INDICATION: Personal history of nicotine dependence. TECHNIQUE: Computed tomography (CT) of the chest was performed without intravenous contrast. The dose -length product was 271.26 mGy-cm. COMPARISON: None FINDINGS: Cervical hardware is noted. No enlarged mediastinal or hilar lymph nodes. Heart is not enlarged. There is a 3.1 cm cyst in the le ft kidney. There are coronary artery calcifications. Thoracic aorta is not aneurysmal. Mild atherosclerotic dise ase in the thoracic aorta. Visualized tracheal bronchial tree is patent. Doal-hz-tqtfqmam paraseptal emphysema. No pneumothorax. No pleural effusion. No pulmonary mass. There are few small reticular opacities in the lower lungs likely atelectasis and scarring. No compression fracture in the thoracic spine. Mild degenerative change scattered through the thoraci c spine. IMPRESSION: 1. No pulmonary nodules or pulmonary mass. 2. No acute pulmonary process identified. 3. Rgox-ea-vdyslgib paraseptal emphysema in the upper lobes. 4. Left renal cyst. Reviewed, dictated and finalized at location A. IMPRESSION: 1. No pulmonary nodules or pulmonary mass. 2. No acute pulmonary process identified. 3. Xhie-aj-dfervwjf paraseptal emphysema in the upper lobes. 4. Left renal cyst.
--- OUTSIDE RECORDS SUMMARY | 2024-10-10 14:20 | XMS_ITS | Clinical Summary ---
Author Organization [facility] Address [address] [place] [address] Care Team Providers Care Material Combiner Name Role Phone Hitesh Chauhan MD Primary Care Provider Allergies No known active allergies Medications albuterol HFA 90 mcg inhalerIndication s:Asthma, mild intermittent, uncomplicated Take 2 Puffs by inhalation every 6 hours as needed for Shortness of Breath. 54 Gram 11 11/16/19 15 Active Insulin [place], Disposable, (Gunjan Pen Needle) 32 gauge x 5/32 Needle 1 Each by [facility]Non-Drug; Combo Route) route 2 times daily. 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 Not on ralf e Not on file Last Filed Vital Signs Vital Sign Reading Time Taken Comments Blood Pressure 121/69 01/09/2021 9:39 AM CREW PERSON Pulse 87 01/09/2021 9:39 AM CREW PERSON Temperature 37.4 C (99.4 F) 01/09/2021 9:25 AM CREW PERSON Respiratory Rate 16 01/09/2021 9:35 AM CREW PERSON Oxygen Saturation 94% 01/09/2021 9:35 AM CREW PERSON Inhaled Oxygen Concentration - - Weight 101 kg (222 lb 9.6 oz) 01/09/2021 7:43 AM CREW PERSON Height 165.1 cm (5' 5) 01/09/2021 7:43 AM CREW PERSON Body Mass Index 37.04 01/09/2021 7:43 AM CREW PERSON Plan of Treatment Health Maintenance Due Date [...] history exists Medical Devices Implanted Type Area Branch Lending Manager Device Identifier Shelf Expiration Date Model / Serial / Lot Hemostatic Surgiflo 8ml W/Thrombin 2994 - [id number] Implanted:Qty : 1 on 10/05/2017 by Nick Rojas MD at [facility] Hemostatic N/A: Spine Lumbar J[employer]- [employer] [id number] 11/28/2018 2994 / / [id number] Do Xpdm Crv W/Line 75mm 1797-71-075 - [id number] Implanted:Qty : 2 on 10/05/2017 by Nick Rojas MD at [facility] Do N/A: Spine Lumbar [employer]- [employer] [id number] / / Set Screw Xpdm Verse 5.5mm - Ssterilized October 01 2017 Implanted:Qty : 6 on 10/05/2017 by Nick Rojas MD at [facility] Screw N/A: Spine Lumbar J&J- [employer] / STERILIZED OCTOBER 01 2017 / LOAD 16 Screw Xpdm Verse 8x50mm - Ssterilized October 01 2017 Implanted:Qty : 1 on 10/05/2017 by Nick Rojas MD at [facility] Screw N/A: Spine Lumbar J&[employer]- [employer] / STERILIZED OCTOBER 01 2017 / LOAD 16 Screw Xpdm Verse 8x45mm - Ssterilized October 01 2017 Implanted:Qty : 1 on 10/05/2017 by Nick Rojas MD at [facility] Screw N/A: Spine Lumbar J&[employer]- [employer] / STERILIZED OCTOBER 01 2017 / LOAD 16 Screw Xpdm Verse 7x50mm - Ssterilized October 01 2017 Implanted:Qty : 1 on 10/05/2017 by Nick Rojas MD at [facility] Screw N/A: Spine Lumbar [employer]- [employer] / STERILIZED OCTOBER 01 2017 / LOAD 16 Screw Xpdm Verse 7x45mm - Ssterilized October 01 2017 Implanted:Qty : 3 on 10/05/2017 by Nick Rojas MD at [facility] Screw N/A: Spine Lumbar J[employer]- [employer] / STERILIZED OCTOBER 01 2017 / LOAD 16 Description:All Depuy spinal hardware was processed on requisition, [id number]. Cross Cnnctr Xpdm Sfx 5.5 Ti - Ssterilized October 02 2017 Implanted:Qty : 1 on 10/05/2017 by Nick Rojas MD at [facility] Spine N/A: Spine Lumbar J[employer]- [employer] / STERILIZED OCTOBER 02 2017 / LOAD 35 Explanted Type Area Branch Lending Manager Device Identifier Shelf Expiration Date Model / Serial / Lot Previously Implanted Hardware Explanted:Qty: 1 on 10/05/2017 by Nick Rojas MD at [facility] Screw N/A: Spine Lumbar Description:TWO SCREWS TWO SET SCREWS ONE DO Procedures Procedure Name Priority Date/Time Associated Diagnosis Comments COLONOSCOPY REPORT 01/09/2021 9: 29 AM CREW PERSON HEMOGLOBIN A1C Routine 10/05/2017 6:39 PM CDT LIPID PANEL Routine 01/07/2016 9:12 AM CREW PERSON Mixed hyperlipidemia MICROALBUMIN/CREATI NINE RATIO, RANDOM UR Routine 06/26/2015 11:02 AM CDT Type 2 diabetes mellitus without complication (CMS/HCC) HM DIABETES EYE EXAM Routine 06/08/2015 from Last 3 Months or Most Recently Relevant to Health Maintenance Results * COLONOSCOPY REPORT (01/09/2021 9:29 AM CREW PERSON) Narrative Procedure Note Yonas Joshua MD - 01/09/2021 9:28 AM CST [facility] Endoscopy Patient Name: Rui Mckinnon Procedure Date: [...] of Addenda: [address]; [place] [address] Yonas Joshua MD GI PROCEDURE ORDERABLES Final Result * (ABNORMAL) HEMOGLOBIN A1C (10/05/2017 6:39 PM CDT) HEMOGLOBIN A1C 7.0(H) 4.0 - 6.0 % 10/05/2017 7:17 PM CDT [facility] EST. AVG GLUCOSE, A1C 154 mg/dL 10/05/2017 7:17 PM CDT [facility] Blood Venipuncture / Unknown 10/05/2017 6:39 PM CDT 10/05/2017 6:42 PM CDT Narrative [facility] - 10/05/2017 7:17 PM CDT HGB A1C INTERPRETATION NORMAL: <5.7% PRE-DIABETES: 5.7 - 6.4% DIABETES: 6.5% OR GREATER Taya ROWLEY CHEMISTRY ORDERABLES F inal Result [facility] CLIA# [id number] [address] [place] [address] * (ABNORMAL) LIPID PANEL (01/07/2016 9:12 AM CREW PERSON) CHOLESTEROL 169 <200 mg/dL 01/07/2016 4:45 PM [facility] TRIGLYCERIDE 412(H) <150 mg/dL 01/07/2016 4:45 PM [facility] HDL 32(L) 40 - 59 mg/dL 01/07/2016 4:45 PM [facility] LDL CALCULATED <100 mg/dL 01/07/2016 4:45 PM [facility] Comment:Calculated LDL is no t accurate when the Triglyceride value exceeds 400. NON-HDL CHOLESTEROL 137(H) <130 mg/dL 01/07/2016 4:45 PM [facility] Blood Collection / Unknown 01/07/2016 9:12 AM CREW PERSON 01/07/2016 2:43 PM [facility] Narrative [facility] - 01/07/2016 4:45 PM [facility] TOTAL CHOLESTEROL mg/dL Desirable <200 Borderline high [...] Taylor MD CHEMISTRY ORDERABLES Final R esult [facility]# [id number] [address] [place] [place] [address] * (ABNORMAL) MICROALBUMIN/CREATININE RATIO, RANDOM UR (06/26/2015 11:02 AM CDT) MICROALBUMIN, URINE 4.7 mg/dL 06/26/2015 2:29 PM CDT [facility] CREATININE, URINE 113.5 40.0 - 278.0 mg/dL 06/26/2015 2:29 PM CDT [facility] Comment: Reference Range varies with fluid intake and diet. MICROALBUMIN/CR EAT RATIO, UR 41.4(H) 0.0 - 29.0 mg/g Creatinine 06/26/2015 2:29 PM CDT [facility] Comment: Condition mg/g Creatinine Normal Males <17 Normal Females <25 Microalbuminuria Males 17-299 Microalbuminuria Females 25-299 Overt proteinuria >=300 Urine URINE SPECIMEN OBTAINED BY CLEAN CATCH PROCEDURE / Unknown Collection / Unknown 06/26/2015 11:02 AM CDT 06/26/2015 1:35 PM CDT Ciara Taylor MD URINE ORDERABLES Final Resul t [facility] CLIA# [id number] [address] [place] [address] * DIABETES EYE EXAM (06/08/2015) Abstract Provider HEALTH MAINTENANCE Edited Resu lt - Final Performing Organization Address City/[facility]/ZIP Co de Phone Number [facility] from Last 3 Months or Most Recently Relevant to Health Maintenance Insurance [address] [id number] Advance Directives For more information, please contact: [phone] * Full Code (Latest Code Status on [...] 6:39 AM 08/29/2015 10:19 AM Care Teams Material Combiner Relationship Specialty Start Date End Date Hitesh Chauhan MD [address] [place] [id number] PCP - General Family Practice 09/23/20
--- OUTSIDE RECORDS SUMMARY | 2024-10-10 14:20 | XMS_ITS | Clinical Summary ---
Author Organization [facility] Address [address] [place] [address] Care Team Providers Care Cytogenetic Technician Name Role Phone Unavailable Primary Care Provider [...]
--- OUTSIDE RECORDS SUMMARY | 2024-10-10 14:20 | XMS_ITS | Patient Health Record ---
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 [address] [address] [place] [address] [id number] Rui Mckinnon Self - patient is the insured 6
--- NOTE | 2024-10-10 15:59 | WPDSIXMINUTE ---
Six Minute Walk Procedure Procedure Performed Pulmonary Stress Test (6 min walk) Six Minute Walk Six Minute Walk: This is a 6 minute walk test. The test was performed and interpreted in accordance with the 2014 ERS/ATS task force guidelines. Findings: The patient's resting room air oxygen saturation measured by pulse oximetry was 96%, the heart rate was 80 bpm, and the modified Ignacia dyspnea score was 0. Patient ambulated for 274 meters and oxygen saturation remained 96 to 97%. At the end of the study the heart rate was 127 bpm and the modified Ignacia dyspnea score was 4. The patient did not qualify for supplemental oxygen at rest or with ambulation. There are no prior studies for comparison.
--- NOTE | 2024-10-10 16:00 | WPDPFTINT ---
PFT Procedure Performed PFT Procedure Performed Spirometry with Pre/Post Bronchodilator Plethysmography (Lung Vol) Diffusing Cap (DLCO) Flow Vol Loop PFT Interpretation This is a pulmonary function test with pre and post-bronchodilator spirometry, plethysmography and diffusing capacity. The test was performed and results interpreted in accordance with the 2019 and 2005 ATS/ERS Task Force guidelines respectively using the Global Lung Function Initiative-2012 reference equations. Patient demonstrated good effort and cooperation. Reproducibility criteria were met. The quality of the pre bronchodilator spirometry maneuver was Grade A and post bronchodilator spirometry maneuver was Grade A. Findings: Spirometry: There is decreased maximal expiratory airflow at low lung volumes with a concave expiratory flow tracing. The contour the inspiratory flow tracing is normal. The pre bronchodilator FVC is 3.04 L, 78% predicted. The pre bronchodilator FEV1 is 2.03 L, 66% predicted. The pre bronchodilator FEV1: FVC ratio 67%. The post bronchodilator FVC is 3.31 L, representing a 9% increase. The post bronchodilator FEV1 is 2.18 L, representing a 7% increase. The post bronchodilator FEV1: FVC ratio 66%. Plethysmography: The total lung capacity is 5.29 L, 89% predicted. The functional residual capacity is 2.48 L, 82% predicted. The residual volume is 2.03 L, 104% predicted. Diffusing capacity: The diffusing capacity unadjusted for hemoglobin and carboxyhemoglobin is 21.1, 80% predicted. The diffusing capacity adjusted for alveolar volume is 3.96, 87% predicted. Impression: There is a moderate obstructive abnormality. There is no significant improvement after inhaling a single dose of albuterol. The lung volumes are normal. The diffusing capacity is normal. There are no prior studies for comparison
== END 2024-10-10 13:51 | disposition home or self-care (01) ==
PROVIDERS: PCP Family Medicine; Visit Provider Nurse Practitioner Family
DX: Z12.2 Encounter for screening for malignant neoplasm of respiratory organs (principal); Z87.891 Personal history of nicotine dependence; J45.20 Mild intermittent asthma, uncomplicated
CPT/HCPCS: 71271; 94060; 94618; 94726; 94729

== ENCOUNTER 2024-12-13 10:32 | Outpatient (CLI) | payer MEDICARE, SELFPAY ==
--- NOTE | ~2024-12-13 | US_ITS ---
Clinical History: I65.22 - Occlusion and stenosis of left carotid artery Examination: US carotid duplex BI Comparison: None Technique: Grayscale, color, duplex/spectral Doppler sonography carotid and vertebral arteries. Distal CCA and Peak ICA systolic velocities provided. Society of Radiologists in Ultrasound (SRU) consensus criteria utilized, indirectly assessing stenosis by velocities. Findings: Scattered plaque Right side: CCA - 84 cm/sec. ICA - 69 cm/sec. ICA/CCA - 0.8 Left Side: CCA - 68 cm/sec. ICA - 49 cm/sec. ICA/CCA - 0.7 Normal antegrade flow measured bilateral vertebral arteries. IMPRESSION: 1. No hemodynamically significant ICA stenosis (i.e., if any stenosis, less than 50%). 2. Normal bilateral antegrade vertebral artery flow. Stenosis measured by Society of Radiologists in Ultrasound (SRU) criteria. Reviewed, dictated and finalized at location R. IMPRESSION: 1. No hemodynamically significant ICA stenosis (i.e., if any stenosis, less th an 50%). 2. Normal bilateral antegrade vertebral artery flow. Stenosis measured by Society of Radiologists in Ultrasound (SRU) criteria.
--- OUTSIDE RECORDS SUMMARY | 2024-12-13 12:26 | XMS_ITS | Clinical Summary ---
Author Organization [facility] Address [address] [place] [address] Care Team Providers Care Oil Sprayer Name Role Phone Hitesh Chauhan MD Primary Care Provider Allergies No known active allergies Medications albuterol HFA 90 mcg inhalerIndication s:Asthma, mild intermittent, uncomplicated Take 2 Puffs by inhalation every 6 hours as needed for Shortness of Breath. 54 Gram 11 11/16/19 15 Active Insulin [place], Disposable, (Gunjan Pen Needle) 32 gauge x 5/32 Needle 1 Each by [facility].(Non-Drug; Combo Route) route 2 times daily. 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 Not on file Last Filed Vital Signs Vital Sign Reading Time Taken Comments Blood Pressure 121/69 01/09/2021 9:39 AM CERTIFIED ANESTHESIOLOGIST ASSISTANT Pulse 87 01/09/2021 9:39 AM CERTIFIED ANESTHESIOLOGIST ASSISTANT Temperature 37.4 C (99.4 F) 01/09/2021 9:25 AM CERTIFIED ANESTHESIOLOGIST ASSISTANT Respiratory Rate 16 01/09/2021 9:35 AM CERTIFIED ANESTHESIOLOGIST ASSISTANT Oxygen Saturation 94% 01/09/2021 9:35 AM CERTIFIED ANESTHESIOLOGIST ASSISTANT Inhaled Oxygen Concentration - - Weight 101 kg (222 lb 9.6 oz) 01/09/2021 7:43 AM CERTIFIED ANESTHESIOLOGIST ASSISTANT Height 165.1 cm (5' 5) 01/09/2021 7:43 AM CERTIFIED ANESTHESIOLOGIST ASSISTANT Body Mass Index 37.04 01/09/2021 7:43 AM CERTIFIED ANESTHESIOLOGIST ASSISTANT Plan of Treatment Health Maintenance Due Date [...] history exists Medical Devices Implanted Type Area Dogman/Woman Device Identifier Shelf Expiration Date Model / Serial / Lot Hemostatic Surgiflo 8ml W/Thrombin 2994 - [id number] Implanted:Qty : 1 on 10/05/2017 by iNck Rojas MD at [facility] Hemostatic N/A: Spine Lumbar [employer] [id number] 11/28/2018 2994 / / [id number] Do Xpdm Crv W/Line 75mm 1797-71-075 - [id number] Implanted:Qty : 2 on 10/05/2017 by Nick Rojas MD at [facility] Do N/A: Spine Lumbar [employer] [id number] / / Set Screw Xpdm Verse 5.5mm - Ssterilized October 01 2017 Implanted:Qty : 6 on 10/05/2017 by Nick Rojas MD at [facility] Screw N/A: Spine Lumbar [employer] / STERILIZED OCTOBER 01 2017 / LOAD 16 Screw Xpdm Verse 8x50mm - Ssterilized October 01 2017 Implanted:Qty : 1 on 10/05/2017 by Nick Rojas MD at [facility] Screw N/A: Spine Lumbar [employer]- [employer] / STERILIZED OCTOBER 01 2017 / LOAD 16 Screw Xpdm Verse 8x45mm - Ssterilized October 01 2017 Implanted:Qty : 1 on 10/05/2017 by Nick Rojas MD at [facility] Screw N/A: Spine Lumbar [employer] / STERILIZED OCTOBER 01 2017 / LOAD 16 Screw Xpdm Verse 7x50mm - Ssterilized October 01 2017 Implanted:Qty : 1 on 10/05/2017 by Nick Rojas MD at [facility] Screw N/A: Spine Lumbar [employer] / STERILIZED OCTOBER 01 2017 / LOAD 16 Screw Xpdm Verse 7x45mm - Ssterilized October 01 2017 Implanted:Qty : 3 on 10/05/2017 by Nick Rojas MD at [facility] Screw N/A: Spine Lumbar [employer] / STERILIZED OCTOBER 01 2017 / LOAD 16 Description:All Dep[employer] spinal hardware was processed on requisition, [id number]. Cross Cnnctr Xpdm Sfx 5.5 Ti - Ssterilized October 02 2017 Implanted:Qty : 1 on 10/05/2017 by Nick Rojas MD at [facility] Spine N/A: Spine Lumbar [employer]- [employer] / STERILIZED OCTOBER 02 2017 / LOAD 35 Explanted Type Area Dogman/Woman Device Identifier Shelf Expiration Date Model / Serial / Lot Previously Implanted Hardware Explanted:Qty: 1 on 10/05/2017 by Nick Rojas MD at [facility] Screw N/A: Spine Lumbar Description:TWO SCREWS TWO SET SCREWS ONE DO Procedures Procedure Name Priority Date/Time Associated Diagnosis Comments COLONOSCOPY REPORT 01/09/2021 9: 29 AM CERTIFIED ANESTHESIOLOGIST ASSISTANT HEMOGLOBIN A1C Routine 10/05/2017 6:39 PM CDT LIPID PANEL Routine 01/07/2016 9:12 AM CERTIFIED ANESTHESIOLOGIST ASSISTANT Mixed hyperlipidemia MICROALBUMIN/CREATI NINE RATIO, RANDOM UR Routine 06/26/2015 11:02 AM CDT Type 2 diabetes mellitus without complication (CMS/HCC) HM DIABETES EYE EXAM Routine 06/08/2015 from Last 3 Months or Most Recently Relevant to Health Maintenance Results * COLONOSCOPY REPORT (01/09/2021 9:29 AM CERTIFIED ANESTHESIOLOGIST ASSISTANT) Narrative Procedure Note Yonas Joshua MD - 01/09/2021 9:28 AM CST [facility] Endoscopy Patient Name: Rui Mckinnon Procedure Date: [...] of Addenda: [address]; [place] [address] Yonas Joshua MD GI PROCEDURE ORDERABLES Final Result * (ABNORMAL) HEMOGLOBIN A1C (10/05/2017 6:39 PM CDT) HEMOGLOBIN A1C 7.0(H) 4.0 - 6.0 % 10/05/2017 7:17 PM CDT [facility] EST. AVG GLUCOSE, A1C 154 mg/dL 10/05/2017 7:17 PM CDT [facility] Blood Venipuncture / Unknown 10/05/2017 6:39 PM CDT 10/05/2017 6:42 PM CDT Narrative [facility] - 10/05/2017 7:17 PM CDT HGB A1C INTERPRETATION NORMAL: <5.7% PRE-DIABETES: 5.7 - 6.4% DIABETES: 6.5% OR GREATER Taya ROWLEY CHEMISTRY ORDERABLES F inal Result [facility] CLIA# [id number] [address] [place] [address] * (ABNORMAL) LIPID PANEL (01/07/2016 9:12 AM CERTIFIED ANESTHESIOLOGIST ASSISTANT) CHOLESTEROL 169 <200 mg/dL 01/07/2016 4:45 PM [facility] TRIGLYCERIDE 412(H) <150 mg/dL 01/07/2016 4:45 PM [facility] HDL 32(L) 40 - 59 mg/dL 01/07/2016 4:45 PM [facility] LDL CALCULATED <100 mg/dL 01/07/2016 4:45 PM [facility] Comment:Calculated LDL is no t accurate when the Triglyceride value exceeds 400. NON-HDL CHOLESTEROL 137(H) <130 mg/dL 01/07/2016 4:45 PM [facility] Blood Collection / Unknown 01/07/2016 9:12 AM CERTIFIED ANESTHESIOLOGIST ASSISTANT 01/07/2016 2:43 PM [facility] Narrative [facility] - 01/07/2016 4:45 PM [facility] TOTAL CHOLESTEROL mg/dL Desirable <200 Borderline high [...] Taylor MD CHEMISTRY ORDERABLES Final R esult [facility]# [id number] [address] [place] [address] * (ABNORMAL) MICROALBUMIN/CREATININE RATIO, RANDOM UR (06/26/2015 11:02 AM CDT) MICROALBUMIN, URINE 4.7 mg/dL 06/26/2015 2:29 PM CDT [facility] CREATININE, URINE 113.5 40.0 - 278.0 mg/dL 06/26/2015 2:29 PM CDT [facility] Comment: Reference Range varies with fluid intake and diet. MICROALBUMIN/CR EAT RATIO, UR 41.4(H) 0.0 - 29.0 mg/g Creatinine 06/26/2015 2:29 PM CDT [facility] Comment: Condition mg/g Creatinine Normal Males <17 Normal Females <25 Microalbuminuria Males 17-299 Microalbuminuria Females 25-299 Overt proteinuria >=300 Urine URINE SPECIMEN OBTAINED BY CLEAN CATCH PROCEDURE / Unknown Collection / Unknown 06/26/2015 11:02 AM CDT 06/26/2015 1:35 PM CDT Ciara Taylor MD URINE ORDERABLES Final Resul t [facility] CLIA# [id number] [address] [place] [address] * DIABETES EYE EXAM (06/08/2015) Abstract Provider HEALTH MAINTENANCE Edited Resu lt - Final Performing Organization Address City/[facility]/ZIP Co de Phone Number [facility] from Last 3 Months or Most Recently Relevant to Health Maintenance [place] [address] [place] [id number] Advance Directives For more information, please contact: [phone] * Full Code (Latest Code Status on [...] 6:39 AM 08/29/2015 10:19 AM Care Teams Oil Sprayer Relationship Specialty Start Date End Date Hitesh Chauhan MD [address] [place] [phone] PCP - General Family Practice 09/23/20
--- OUTSIDE RECORDS SUMMARY | 2024-12-13 12:26 | XMS_ITS | Clinical Summary ---
Author Organization [facility] Address [address] [place] [address] Care Team Providers Care Coffee Weigher Name Role Phone Unavailable Primary Care Provider [...] COVID-19 Vaccine ( - 2023-2 5 season) 2024 Influenza Adult (#1) 2024 Meningococcal B Vaccine Aged Out No l onger eligible based on patient's age to complete this topic Meningococcal Vaccine Aged Out No roman rosmery eligible based on patient's age to complete this topic RSV Immunizations Under 20 Months Aged Out No longer eligible based on patient's age to complete this topic
--- OUTSIDE RECORDS SUMMARY | 2024-12-13 12:26 | XMS_ITS | Clinical Summary ---
Author Organization [facility] Address [address] [place] [address] Care Team Providers Care Presto Log Operator Name Role Phone Hitesh Chauhan MD Primary Care Provider Velasquez Cordoba MD Unavailable [phone] Tika Basurto NP Unavailable [phone] Allergies No known active allergies Medications albuterol [...] times a day as needed 3 Active finerenone (Kerendia) 10 mg tablet Take 10 mg by mouth daily Active empagliflozin (JARDIANCE) 10 mg tablet 1 tablet (10 mg total) daily Active Active Problems Problem Noted Date Diagnosed Date Severe malnutrition 06/19/2022 S/P lumbar spinal fusion 06/15/2022 Spondylolisthesis of lumbar region 04/28/2022 Overview (04/28/2022): Added automatically from request for surgery [id number] Chronic low back pain with left-sided sciatica [...] bladder COPD (chronic obstructive pu lmonary disease) Depression Type 2 diabetes mellitus Hypertension Disc disorder of lumbar region Sleep [...] 03/17/2022 Smokeless Tobacco: Never Tobacco Cessation:Counseling Given: Not Answered AUDIT-C Answer Date Recorded Q1: How often [...] on file 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 Gender Identity Not on file Sexual Orientation Not on file Obstetrics History Last Filed Vital Signs Vital Sign Reading Time Taken Comments Blood Pressure 133/84 07/20/2024 11:04 AM CDT Pulse 75 07/20/2024 11:04 AM CDT Temperature 37.4 C (99.3 F) 06/20/2022 1:46 PM CDT Respiratory Rate 18 06/20/2022 1:46 PM CDT Oxygen Saturation 95% 07/20/2024 11:04 AM CDT Inhaled Oxygen Concentration - - Weight 99.1 kg (218 lb 6.4 oz) 07/20/2024 11:04 AM CDT Height 165.1 cm (5' 5) 07/20/2024 11:04 AM CDT Body Mass Index 36.34 07/20/2024 11:04 AM CDT Plan of Treatment Health Maintenance [...] 05/31, 06/19/2022, Additional history exists Covid-19 Vaccine (2024- 6 season) 2024 01/19/2021, 05/22/2020, 04/30/2020 Influenza Vaccine (#1) 2024 , 01/07/2016, 11/15/2014, Additional history exists Medical Devices Implanted Type 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 Device Identifier Shelf Expiration Date Model / Serial / Lot [employer] Canpac Nonpurge Frozen Graft 50cc Bone [id number] - [id number] - [id number] Implanted:Qty: 1 on 06/15/2022 by Velasquez Cordoba MD at [facility] N/A: Spine Lumbar [employer] 01/29/2027 [id number] / [id number] / Description:ID: [id number] [employer] Creo Thread Spinal Cap Locking Nonsterile 1119.0010 - [id number] Implanted:Qty: 7 on 06/15/2022 by Velasquez Cordoba MD at [facility] N/A: Spine Lumbar [employer] 1119.0010 / / [employer] Graft Bone Filler Resorbable Mesh [id number] - [id number] - [id number] Implanted:Qty: 1 on 06/15/2022 by Velasquez Cordoba MD at [facility] N/A: Spine Lumbar [employer] [id number] 09/26/2023 [id number] / [id number] / [id number] [employer] Graft Bone Filler Resorbable Mesh [id number] - [id number] - [id number] Implanted:Qty: 1 on 06/15/2022 by Velasquez Cordoba MD at [facility] N/A: Spine Lumbar [employer] [id number] 03/28/2023 [id number] / [id number] / [id number] [employer] Graft Bone Filler Resorbable Mesh [id number] - [id number] - [id number] Implanted:Qty: 1 on 06/15/2022 by Velasquez Cordoba MD at [facility] N/A: Spine Lumbar [employer] [id number] 10/27/2023 [id number] / [id number] / [id number] [employer] Altera [id number] 15d Spacer Spinal 1124.1132 - [id number] Implanted:Qty: 1 on 06/15/2022 by Velasquez Cordoba MD at [facility] N/A: Spine Lumbar [employer] 1124.1132 / / [employer] Creo Amp 7.5mm 45mm Cannulated Modular Spine Screw Bone 1067.4745 - [id number] Implanted:Qty: 5 on 06/15/2022 by Velasquez Cordoba MD at [facility] N/A: Spine Lumbar [employer] 1067.4745 / / [employer] Creo 7.5mm 50mm Cannulated Modular Spine Screw Bone 1067.4750 - [id number] Implanted:Qty: 2 on 06/15/2022 by Velasquez Cordoba MD at [facility] N/A: Spine Lumbar [employer] 1067.4750 / / [employer] 7146.011 Creo Amp Polyaxial Thread Tulip Spine Transfacet Screw Bone Cocr - [id number] Implanted:Qty: 7 on 06/15/2022 by Velasquez Cordoba MD at [facility] N/A: Spine Lumbar [employer] 7146.0110 / / [employer] 7134.71 Creo Mis 5.5mm 100mm Curve Elier Spinal Cocr - [id number] Implanted:Qty: 2 on 06/15/2022 by Velasquez Cordoba MD at [facility] N/A: Spine Lumbar [employer] 7134.7100 / / Procedures Procedure Name Priority Date/Time Associated Diagnosis Comments EGFR Routine 06/20/2022 4:40 AM CDT HEMOGLOBIN A1C Routine 06/05/2022 10:39 AM CDT Spondylolisthesis of lumbar region Pre-operative exam from Last 3 Months or Most Recently Relevant to Health Maintenance Results * eGFR (06/20/2022 4:40 AM CDT) eGFR 113 mL/min/1. 73 m2 [facility] [...] May Lola Art DO LAB BLOOD ORDERABLES nal Result [facility] [address] [facility] Department [place] [address] * (ABNORMAL) Hemoglobin A1c (06/05/2022 10:39 AM CDT) Hgb A1C 6.7(H) 4.0 - 5.6 % [facility] Estimated Average Glucose 146 mg/dL [facility] Comment: The ADA recommends reporting an estimated Average Glucose (eAG) with all Hemoglobin A1c results using the equation derived from a study of 507 normal and diabetic adults. Minority populations were underrepresented and children were not included. (Diabetes Care 31:6668-9032, 2008). The eAG is not equivalent to a fasting glucose. Blood 06/05/2022 10:3 9 AM CDT 06/05/2022 10:49 AM CDT us Velasquez Cordoba MD LAB BLOOD ORDERABLES Final Result Performing Organization Address City/State/ZIP [place] Phone Number [id number] Department [place] [address] from Last 3 Months or Most Recently Relevant to Health Maintenance Insurance [facility] UHC MEDICARE ADVANTAGE Advance Directives For more information, please contact: [phone] * Full Code (Latest Code Status on File) Date Activated Date Inactivated Comments 06/15/2022 3:35 PM 06/20/2022 8:09 PM Care Teams Presto Log Operator Relationship Specialty Start Date End Date Hitesh Chauhan MD PCP - General Family Practice 08/05/21 Velasquez Cordoba MD Consulting Physician Neurosurgery 12/01/21 Tika Basurto NP Nurse Practitioner Neurosurgery 12/01/21
--- OUTSIDE RECORDS SUMMARY | 2024-12-13 12:26 | XMS_ITS | Clinical Summary ---
Author Organization [facility] Address [address] [place] [address] Care Team Providers Care Fire Pilot Name Role Phone Unavailable Primary Care Provider Unavailabl e Source Comments [facility],non-owned Affiliates and Associated Physician Practices is amultiple site organization consisting of ambulatory clinics and hospital sitesin [place], [place], [place] and [place]. This disclosure is being madepursuant to the Care Everywhere program and may not contain all information available regarding this patient. Last updated 17.[facility] Allergies No known active allergies Medications * This document contains information received from the source organization and may not represent a complete record from that organization. * Be aware that medications may not be up to date on this document. Alwaysverify current medications with the patient. cloNIDine (CATAPRES) 0.1 MG tabletIndicati ons:Opioid Withdrawal Syndrome Take 1 Tab by mouth 3 times daily as needed Reasons: Codeine/Morphine-Li ke Drug Withdrawal Syndrome 45 Tab 04/21/19 17 Active methocarbamol (ROBAXIN) 750 MG tabletIndicati ons:Musculoske letal Pain Take 1 Tab by mouth every 6 hours as needed for Muscle Spasms Reasons: Musculoskeletal Pain 60 Tab 04/21/19 17 Active oxyCODONE-acet aminophen (PERCOCET) 5-325 MG tablet Take 1 Tab by mouth every 8 hours as needed for Pain Active metFORMIN (GLUCOPHAGE) 1000 MG tablet Take 1,000 mg by mouth 2 times daily with morning and evening meal Active gabapentin (NEURONTIN) 800 MG tablet Take 800 mg by mouth 3 times daily Activ e fenofibrate (TRICOR) 145 MG tablet Take 145 mg by mouth once daily Active aspirin EC (ECOTRIN) 81 MG tablet Take 81 mg by mouth once daily Active lisinopril (PRINIVIL; ZESTRIL) 10 MG tablet Take 10 mg by mouth once daily Active DULoxetine (CYMBALTA) 60 MG capsuleIndicat ions:Major Depressive Disorder Take 1 Cap by mouth once daily Reasons: Major Depressive Disorder 30 Cap 06/03/19 17 Active buPROPion SR 12hr (WELLBUTRIN-SR ) 100 MG tablet Take 100 mg by mouth 2 times daily Activ e Family History Medical History Relation Name Comments Alcohol abuse Brother Schizophrenia Brother Relation Name Status Comments Brother Social History Tobacco Use Types Packs/Day Years Used Date Smoking Tobacco: Never Sex and Gender Information Value Date Recorded Sex Assigned at Not on file 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 Gender Identity Not on file Sexual Orientation Not on file Last Filed Vital Signs Vital Sign Reading Time Taken Comments Blood Pressure 142/84 04/21/2016 2:44 PM CABIN EQUIPMENT SUPERVISOR Pulse 68 04/21/2016 2:44 PM CABIN EQUIPMENT SUPERVISOR Temperature 36.4 C (97.6 F) 04/21/2016 2:44 PM CABIN EQUIPMENT SUPERVISOR Respiratory Rate 16 04/21/2016 2:44 PM CABIN EQUIPMENT SUPERVISOR Oxygen Saturation - - Inhaled Oxygen Concentration - - Weight 119.7 kg (264 lb) 04/21/2016 2:44 PM CABIN EQUIPMENT SUPERVISOR Height 170.2 cm (5' 7) 04/21/2016 2:44 PM CABIN EQUIPMENT SUPERVISOR Body Mass Index 41.35 04/21/2016 2:44 PM CABIN EQUIPMENT SUPERVISOR Plan of Treatment Health Maintenance Due Date [...] 05/17/2015 ZOSTER VACCINE (1 of 2) 05/17/2015 DEPRESSION SCREENING 03/01/2024 MEDICARE AWV CALENDAR YEAR 2024 COVID-19 VACCINE (2023-2 5 season) 2024 INFLUENZA VACCINE (#1) 2024 HIB VACCINE Aged Out No longer eligi ble based on patient's age to complete this topic HPV VACCINE Aged Out No longer eligi ble based on patient's age to complete this topic MENINGOCOCCAL (Group B) VACC INE SHARED DECISION-MAKING Aged Out No longer eligibl e based on patient's age to complete this topic MENINGOCOCCAL GROUPS A/C/Y/W VACCINE Aged Out No longer eligible b ased on patient's age to complete this topic Insurance [employer] MED[employer] ADV SELF PAY NO INSURANCE Member Subscriber Plan / Payer (Ef fective for All Dates) Name:Rui Crain Member ID:Not on file Relation to Subscriber:Not on file Name:RUI CRAIN Subscriber ID:Not on file (Home) Address: [address] [place] [address] Payer ID:Not on file Group ID:Not on file Type:Self Pay Address: [place], [place] [employer] MED[employer]ARE ADV SELF PAY NO INSURANCE Member Subscriber Plan / Payer (Ef fective for All Dates) Name:Rui Crain Member ID:Not on file Relation to Subscriber:Not on file Name:RUI CRAIN Subscriber ID:Not on file Address: [address] [place] [address] Payer ID:Not on file Group ID:Not on file Type:Self Pay Address: [place], [place] VALUE OPTIONS VALUE OPTIONS
--- OUTSIDE RECORDS SUMMARY | 2024-12-13 12:26 | XMS_ITS | Patient Health Record ---
Author Organization [facility] Address [address] [address] Care Team Providers Care Telemetry Rn Name Role Phone WAYNE HORTA Unavailable [phone] Reason For Referral No Information Problems Problem Type SNOMED Code ICD Code Onset Dates Problem Status W/U Status Risk Notes Problem Carpal tunnel syndrome (34227313) Carpal tunnel syndrome (354.0) 0 confirmed [place]rated[place] Problem Brachial neuritis (89357744) Brachial neuritis or radiculitis nos. (723.4) 0 confirmed [place]rated[place] Problem Pain in limb (13557983) Pain in soft tissues of limb (729.5) 0 confirmed Migrated[place]ita Plan Of Treatment No Information Insurance Providers Payer Name Payer Address Payer Phone Subscriber Number Group Number Insured Name Patient Relationship to Insured Coverage Start Date Coverage End Date [facility] [address] [address] [place] [address] [id number] Rui Mckinnon Self - patient is the insured 6
== END 2024-12-13 10:33 | disposition home or self-care (01) ==
PROVIDERS: PCP Family Medicine; Visit Provider Internal Medicine Cardiovascular Disease
DX: I65.22 Occlusion and stenosis of left carotid artery (principal)
CPT/HCPCS: 93880

== ENCOUNTER 2025-02-12 07:56 | Outpatient (CLI) | payer MEDICARE, SELFPAY ==
--- NOTE | ~2025-02-12 | US_ITS ---
EXAMINATION: US renal BI DATE: 02/12/2025 08:26 INDICATION: 3.1 cm left renal cyst TECHNIQUE: Multiple ultrasound grayscale images of the kidneys were obtained. COMPARISON: None. FINDINGS: The right kidney measures 10.8 x 6.8 x 6.6 cm. The left kidney measures 16.4 x 8.4 x 10.0 cm. Inclusive of an 8.8 cm exophytic cyst at the lower pole of the left kidney. There is also a second 3.6 cm cyst at the upper pole of the left kidney. The kidneys demonstrate normal echogenicity. There is no hydronephrosis in either kidney. No stones identified. The bladder is normal. IMPRESSION: 1. A couple left renal cysts the larger measuring 8.8 cm. Otherwise normal kidneys with no hydronephrosis. Reviewed, dictated and finalized at location A. MOTIVE SALES MANAGER IMPRESSION: 1. A couple left renal cysts the larger measuring 8.8 cm. Otherwise normal kid neys with no hydronephrosis.
== END 2025-02-12 07:57 | disposition home or self-care (01) ==
LOC: MICIMG 07:57
PROVIDERS: PCP Family Medicine; Visit Provider Internal Medicine Nephrology
DX: N28.1 Cyst of kidney, acquired (principal)
CPT/HCPCS: 76770